=== PATIENT | male | born 1950 | race Caucasian/White ===

== ENCOUNTER → 2016-04-29 | Outpatient (CLI) | payer MEDICAID ==
[~2016-04-29] MED LIST: ALBU8.5H5 INH; ALPR1TAB7 PO; ASPI-1085 PO; LOPE2TAB8 PO; MULT-806 PO; PARO40TA61 PO; POTA-12 PO; QUET300T PO; QUET300T44 PO; [UNRECOGNIZED DRUG - CODE] PO; [UNRECOGNIZED DRUG - CODE] PO
[2016-04-29 17:36] LABS: BASOPHILS # (AUTO) 0.1 T/MM3 (0-0.2); BASOPHILS % (AUTO) 0.7 % (0-2); EOSINOPHILS # (AUTO) 0.4 T/MM3 (0-0.5); HCT - HEMATOCRIT 42.6 % (41-53); HGB - HEMOGLOBIN 14.8 GM/DL (13.5-17.5); IMMATURE GRANULOCYTE # (AUTO) 0.03 T/MM3 (0.00-0.03); IMMATURE GRANULOCYTE % (AUTO) 0.3 % (0.0-0.5); LYMPHOCYTES # (AUTO) 3.4 T/MM3 (1-4.8); LYMPHOCYTES % (AUTO) 38.3 % (23-45); MEAN CORPUSCULAR HGB 34.2 UUG (26-34); MEAN CORPUSCULAR HGB CONC(MCHC 34.7 GM/DL (31-37); MEAN CORPUSCULAR VOLUME 98.4 UM3 (80-100); MEAN PLATELET VOLUME 9.5 UM3 (9.4-12.4); MONOCYTES # (AUTO) 0.6 T/MM3 (0-0.8); MONOCYTES % (AUTO) 6.7 % (0-9.0); NEUTROPHILS #(AUTO)-ABSOLUTE 4.3 T/MM3 (1.8-7.7); RED BLOOD COUNT 4.33 M/MM3 (4.50-5.90); WBC - WHITE BLOOD COUNT 8.8 T/MM3 (4.5-11.0)
[2016-04-29 17:48] LABS: ALBUMIN/GLOBULIN RATIO 1.1 RATIO (1.1-2.2); ALKALINE PHOSPHATASE 98 U/L (38-126); ALT (SGPT) 39 U/L (21-72); ANION GAP 8 MEQ/L (5-15); AST (SGOT) 28 U/L (17-59); BUN/CREATININE RATIO 11 RATIO (6-26); CHLORIDE 99 MEQ/L (98-107); CO2 - CARBON DIOXIDE 33 MEQ/L (22-30); CREATININE 0.9 MG/DL (0.8-1.5); ETHANOL <10 MG/DL (<10); GLOMERULAR FILTRATION RATE 85; GLUCOSE 94 MG/DL (75-110); POTASSIUM 3.5 MEQ/L (3.6-5); SODIUM 140 MEQ/L (134-144); TOTAL PROTEIN 7.6 G/DL (6.3-8.2)
== END ==
LOC: LAB 17:00
PROVIDERS: ATTEND Family Medicine
DX: I10 Essential (primary) hypertension (principal); F10.10 Alcohol abuse, uncomplicated
CPT/HCPCS: 36415; 80053; 80307; 85025

== ENCOUNTER 2016-05-31 22:19 | Observation (INO) | payer MEDICAID ==
[~2016-05-31] VITALS: Ht 182.9 cm; Wt 98.2 kg
--- OUTSIDE RECORDS SUMMARY | 2016-05-31 22:24 | XMS REPORT | Referral Summary ---
Author Author [facility] Organization [facility] Address Unknown Phone Unavailable Care Team Providers Care Casino Beverage Server Name Role Phone MarcusEpi Primary Care Physician [phone] Encounter [facility] [id number] Date(s): 02/23/16 - 02/23/16 [facility] [address] [place] [address] [phone] Discharge Disposition: 01-Home or Self Care Attending Physician: Jake Jung MD Admitting Physician: Jake Jung MD Vital Signs No data available for this section Problem List Condition Effective Dates Status Health Status Informant Chronic back Active patient pain(Confirmed) Dementia(Confirmed) Active patient Depression(Confirmed Active patient ) GERD Active (gastroesophageal reflux disease)(Confirmed) Hypertension(Confirm Active patient ed) Insomnia(Confirmed) Active patient Psychiatric(Confirme Active patient d) Hepatitis Active C(Confirmed) Allergies, Adverse Reactions, Alerts No Known Medication Allergies Medications aspirin 0 Refill(s) Start Date: 07/20/13 Status: Ordered busPIRone 30 mg oral tablet 30 mg 1 tabs, Oral, BID, # 180 tabs, 0 Refill(s) Start Date: 03/21/15 Status: Ordered Cane (DME) DME Item four legged cane: dx gait disturbance, falls; duration of need: indeterminate, See Instructions, # 1 Each, 0 Refill(s), Pharmacy: [facility] #[id number], four legged cane: dx gait disturbance, falls; duration of need: indeterminate, Supply Start Date: 07/20/13 Status: Ordered Combivent Respimat CFC free 20 mcg-100 mcg/inh inhalation aerosol 1 puffs, Inhalation, QID, # 4 g, 0 Refill(s) Start Date: 06/12/14 Status: Ordered ibuprofen 800 mg oral tablet 1 tabs, Oral, TID, as needed for pain, # 30 tabs, 0 Refill(s) Start Date: 06/12/14 Status: Ordered KlonoPIN Oral, TID, 0 Refill(s) Start Date: 07/20/13 Status: Ordered lisinopril Oral, Daily, 0 Refill(s) Start Date: 07/20/13 Status: Ordered Paxil Oral, Daily, 0 Refill(s) Start Date: 07/20/13 Status: Ordered PriLOSEC 20 mg oral delayed release capsule 1 caps, Oral, Daily, # 30 caps, 0 Refill(s) Start Date: 06/12/14 Status: Ordered PROzac 40 mg oral capsule 40 mg 1 caps, Oral, Daily, 0 Refill(s) Start Date: 03/21/15 Status: Ordered SEROquel Oral, 0 Refill(s) Start Date: 07/20/13 Status: Ordered SEROquel Oral, 0 Refill(s) Start Date: 07/20/13 Status: Ordered Soma Oral, QID, 0 Refill(s) Start Date: 07/20/13 Status: Ordered Sudafed 30 mg oral tablet tabs, Oral, q6hr, 0 Refill(s) Start Date: 06/12/14 Status: Ordered Topamax Oral, BID, 0 Refill(s) Start Date: 07/20/13 Status: Ordered Topamax Oral, BID, 0 Refill(s) Start Date: 07/20/13 Status: Ordered Tylenol with Codeine #3 oral tablet 1 tabs, Oral, q4hr, as needed for pain, 0 Refill(s) Start Date: 06/12/14 Status: Ordered Walker (DME) DME Item Walker: dx gait disturbance, falls; duration of need: indeterminate, See Instructions, # 1 Each, 0 Refill(s), Pharmacy: [facility] #[id number], Walker: dx gait disturbance, falls; duration of need: indeterminate, Supply Start Date: 07/20/13 Status: Ordered Results No data available for this section Immunizations Given and Recorded Vaccine Date Status Refusal Reason tetanus/diphth/pertuss (Tdap) adult/adol 07/20/13 Given Procedures Procedure Date Related Diagnosis Body Site Esophagogastroduodenoscopy - SN1 03/21/15 Procedure with Anesthesia2 03/21/15 circumferential biopsies from distal 12/25/12 esophagus via cold biopsy technique cold biopsy forceps x1 12/25/12 Colonoscopy 12/25/12 Esophagogastroduodenoscopy 12/25/12 Polypectomy via snare polypectomy technique x 12/25/12 2 Cholecystectomy Hiatal herniorrhaphy Vasectomy 1auto-populated from documented surgical case 2auto-populated from documented surgical case Social History Social History Type Response Smoking Status Current every day smoker; Type: Cigarettes Assessment and Plan No data available for this section
--- OUTSIDE RECORDS SUMMARY | 2016-05-31 22:24 | XMS REPORT | Referral Summary ---
Author Author [facility] Organization [facility] Address Unknown Phone Unavailable Care Team Providers Care Luster Applicator Name Role Phone Epi Velazquez Primary Care Physician [phone] Encounter [facility] [id number] Date(s): 04/05/16 - 04/05/16 [facility] [address] [place], [place] [address] Discharge Diagnosis: Alcohol intoxication Discharge Disposition: 01-Home or Self Care Attending Physician: Chris Aguero MD Admitting Physician: Chris Aguero MD Vital Signs Most recent to 1 oldest [Reference Range]: Temperature Oral 37.1 degC [35.8-37.3 degC] (04/05/16 4:56 PM) Peripheral Pulse 80 bpm Rate [60-100 bpm] (04/05/16 4:56 PM) Heart Rate Monitored 80 bpm [60-100 bpm] (04/05/16 6:45 PM) Respiratory Rate 20 br/min [14-20 br/min] (04/05/16 6:45 PM) Blood Pressure 123/84 mmHg [90-140/60-90 mmHg] (04/05/16 6:45 PM) Mean Arterial 99 mmHg Pressure, Cuff (04/05/16 6:45 PM) SpO2 95 % (04/05/16 6:45 PM) Problem List Condition Effective Dates Status Health [...] Instructions, # 1 Each, 0 Refill(s), Pharmacy: [facility] #[id number], four legged cane: dx gait disturbance, falls; [...] Instructions, # 1 Each, 0 Refill(s), Pharmacy: [facility] #[id number], Walker: dx gait disturbance, falls; duration of need: indeterminate, Supply Start Date: 07/20/13 Status: Ordered Results Hematology Most recent to 1 oldest [Reference Range]: WBC [4.8-10.8 8.4 10*3/uL 10*3/uL] (04/05/16 5:27 PM) RBC [4.60-6.20] 4.35 *LOW* (04/05/16 5:27 PM) Hgb [14.0-18.0 14.4 gm/dL gm/dL] (04/05/16 5:27 PM) Hct [42.0-52.0 %] 42.9 % (04/05/16 5:27 PM) MCV [82.0-99.0 fL] 98.6 fL (04/05/16 5:27 PM) MCH [27.0-32.0 pg] 33.1 pg *HI* (04/05/16 5:27 PM) MCHC [32.0-36.0 33.6 gm/dL gm/dL] (04/05/16 5:27 PM) RDW [11.5-14.5 %] 12.8 % (04/05/16 5:27 PM) Platelet [150-400 236 10*3/uL 10*3/uL] (04/05/16 5:27 PM) MPV [9.4-12.3 fL] 10.0 fL (04/05/16 5:27 PM) Immature 0.5 % Granulocytes (04/05/16 5:27 PM) [0.0-1.0 %] Neutrophils [51-75 45 % %] *LOW* (04/05/16 5:27 PM) Lymphocytes [20-46 35 % %] (04/05/16 5:27 PM) Monocytes [4-11 %] 15 % *HI* (04/05/16 5:27 PM) Eosinophils [0-4 %] 5 % *HI* (04/05/16 5:27 PM) Basophils [0-2 %] 1 % (04/05/16 5:27 PM) Neutro Absolute 3.81 [1.90-7.00] (04/05/16 5:27 PM) Lymph Absolute 2.91 [0.80-3.30] (04/05/16 5:27 PM) [place] Absolute 1.22 [0.30-1.00] *HI* (04/05/16:27 PM) Eos Absolute 0.39 [0.00-0.50] (04/05/16 5:27 PM) Baso Absolute 0.06 [0.00-0.20] (04/05/16 5:27 PM) Coagulation Most recent to 1 oldest [Reference Range]: INR [0.9-1.2] 1.1 (04/05/16 5:27 PM) Chemistry Most recent to 1 oldest [Reference Range]: Sodium Lvl [136-144 136 mEq/L mEq/L] (04/05/16:27 PM) Potassium Lvl 3.5 mEq/L [3.6-5.1 mEq/L] *LOW* (04/05/16:27 PM) Chloride [99-109 97 mEq/L mEq/L] *LOW* (04/05/16:27 PM) CO2 [22-32 mEq/L] 26 mEq/L (04/05/16 5:27 PM) AGAP [3-20] 13 (04/05/16 5:27 PM) BUN [4-20 mg/dL] 9 mg/dL (04/05/16:27 PM) Glucose Lvl [70-100 135 mg/dL mg/dL] *HI* (04/05/16:27 PM) Creatinine Lvl 0.87 mg/dL [0.64-1.27 mg/dL] (04/05/16:27 PM) eGFR [>60] >60 1 (04/05/16 5:27 PM) Calcium Lvl 9.0 mg/dL [8.6-10.0 mg/dL] (04/05/16 5:27 PM) Albumin Lvl [3.5-4.8 3.7 gm/dL gm/dL] (04/05/16 5:27 PM) Total Protein 7.2 gm/dL [6.1-7.9 gm/dL] (04/05/16 5:27 PM) Globulin [1.9-4.3 3.5 gm/dL gm/dL] (04/05/16 5:27 PM) ALT [17-63 U/L] 23 U/L (04/05/16 5:27 PM) AST [15-41 U/L] 29 U/L (04/05/16 5:27 PM) Alk Phos [26-104 64 U/L U/L] (04/05/16 5:27 PM) Bili Total [0.2-1.2 0.6 mg/dL 2 mg/dL] (04/05/16 5:27 PM) Lipase Lvl [8-48 25 U/L U/L] (04/05/16 5:27 PM) 1Result Comment: Multiply eGFR results by 1.21 for race. 2Result Comment: Naproxen, specifically the metabolite O-desmethylnaproxen, may cause spurious elevation in Total Bilirubin levels. Toxicology Most recent to 1 oldest [Reference Range]: Ethanol Lvl 284 mg/dL (04/05/16 5:27 PM) Immunizations Given and Recorded Vaccine Date Status [...]
--- OUTSIDE RECORDS SUMMARY | 2016-05-31 22:24 | XMS REPORT | Continuity of Care Document ---
Author Author [facility] Organization [facility] Address Unknown Phone Unavailable Allergies Active Description Code Type Severity Reaction Onset Reported/Identified Relationship to Patient Clinical Status Yes No Known Allergies Drug Allergy Unknown N/A 04/17/2013 Yes No Known Allergies Drug Allergy N/A N/A 05/21/2013 Yes No Known Drug Allergies Drug Allergy N/A N/A 05/21/2013 Yes No Known Food Allergies Food Allergy N/A N/A 05/21/2013 Yes No Known Medication Allergies NKMA N/A N/A 07/20/2013 Yes No Known Allergies No Known Allergies Drug Allergy Unknown N/A 03/17/2016 Medications Medication Packaging Start Date Stop Date Route Dosage Sig QUEtiapine(SEROquel) 07/20/2013 Oral Oral topiramate(Topamax) 07/20/2013 Oral Oral, BID QUEtiapine(SEROquel) 07/20/2013 Oral Oral topiramate(Topamax) 07/20/2013 Oral Oral, BID aspirin(aspirin) 07/20/2013 PARoxetine(Paxil) 07/20/2013 Oral Oral, Daily lisinopril(lisinopril) 07/20/2013 Oral Oral, Daily carisoprodol(Soma) 07/20/2013 Oral Oral, QID clonazePAM(KlonoPIN) 07/20/2013 Oral Oral, TID busPIRone(busPIRone 30 mg oral tablet) 1 tabs 03/21/2015 Oral 30 mg 30 mg=1 tabs, Oral, BID, 180 tabs, 0 Refill(s) FLUoxetine(PROzac 40 mg oral capsule) 1 caps 03/21/2015 Oral 40 mg 40 mg=1 caps, Oral, Daily, 0 Refill(s) Lactated Ringers Injection(Lactated Ringers Injection 1, 000 mL) 1,000 mL 201503/21/2015 IV 10 mL/hr, IV ipratropium-albuterol(DuoNeb 0.5 mg-2.5 mg/3 mL inhalation solution) 3 mL 201604/09/2016 NEB 3 mL, NEB, Once Problems Date Dx Coded Attending Type Code Diagnosis Diagnosed By 12/20/2012 Edilma Valle MD, Tree Gilliam Final V70.4 EXAM-MEDICOLEGAL REASONS 01/16/2013 Bear Lackey MD Final 305.1 TOBACCO USE DISORDER 01/16/2013 Bear Lackey MD Final 530.81 ESOPHAGEAL REFLUX 01/16/2013 Bear Lackey MD Final 530.85 HAYS S ESOPHAGUS 01/16/2013 Bear Lackey MD Final 787.01 NAUSEA W VOMITING 05/14/2013 Francisco Segovia MD Final 305.1 TOBACCO USE DISORDER 05/14/2013 Francisco Segovia MD Final 401.1 BENIGN HYPERTENSION 05/14/2013 Francisco Segovia MD Final 780.2 SYNCOPE COLLAPSE 05/14/2013 Francisco Segovia MD Final 780.4 DIZZINESS GIDDINESS 05/14/2013 Francisco Segovia MD Final 786.05 SHORTNESS OF BREATH 05/14/2013 Francisco Segovia MD Admitting 780.2 SYNCOPE COLLAPSE 05/18/2013 Francisco Segovia MD Final 305.1 TOBACCO USE DISORDER 05/18/2013 Francisco Segovia MD Final 338.29 CHRONIC PAIN NEC 05/18/2013 Francisco Segovia MD Final 401.1 BENIGN HYPERTENSION 05/18/2013 Francisco Segovia MD Final 530.81 ESOPHAGEAL REFLUX 05/18/2013 Francisco Segovia MD Final 724.5 BACKACHE NOS 05/18/2013 Francisco Segovia MD Final 780.2 SYNCOPE COLLAPSE 05/18/2013 Francisco Segovia MD Admitting 780.2 SYNCOPE COLLAPSE 05/21/2013 Francisco Segovia MD Final 414.8 CHR ISCHEMIC HRT DIS NEC 05/21/2013 Francisco Segovia MD Final 780.2 SYNCOPE COLLAPSE 05/21/2013 Francisco Segovia MD Admitting 786.05 SHORTNESS OF BREATH 05/21/2013 Francisco Segovia MD Final 794.31 NONSPECIFIC ABN EKG/ECG 05/21/2013 Francisco Segovia MD Admitting 780.2 SYNCOPE COLLAPSE 03/31/2015 Jake Jung MD Final B18.2 Chronic viral hepatitis C 03/31/2015 Jake Jung MD Final F17.210 Nicotine dependence, cigarettes, uncomplicated 03/31/2015 Jake Jung MD Final I10 Essential (primary) hypertension 03/31/2015 Jake Jung MD Final I85.00 Esophageal varices without bleeding 03/31/2015 Jake Jung MD Final K22.70 Hays''s esophagus without dysplasia 03/31/2015 Jake Jung MD Final K74.60 Unspecified cirrhosis of liver 03/31/2015 Jake Jung MD Reason Z13.89 Encounter for screening for other disorder 02/25/2016 Jung Michael Reason R18.8 Other ascites 04/07/2016 Aguero Curt Final F10.229 Alcohol dependence with intoxication, unspecified 04/07/2016 Aguero Curt Final F17.210 Nicotine dependence, cigarettes, uncomplicated 04/07/2016 Aguero Curt Final K70.30 Alcoholic cirrhosis of liver without ascites 04/07/2016 Aguero Curt Reason R79.89 Other specified abnormal findings of blood chemistry 04/07/2016 Aguero Curt Final Z79.899 Other usp (current) drug therapy 04/12/2016 Jung Michael Final B19.20 Unspecified viral hepatitis C without hepatic coma 04/12/2016 Jung Michael Final F10.10 Alcohol abuse, uncomplicated 04/12/2016 Jung Michael Final F17.210 Nicotine dependence, cigarettes, uncomplicated 04/12/2016 Jung Michael Reason I85.10 Secondary esophageal varices without bleeding 04/12/2016 Jung Michael Final J44.9 Chronic obstructive pulmonary disease, unspecified 04/12/2016 Jung Michael Final K22.70 Hays''s esophagus without dysplasia Procedures Code Description [place] [address] Esophagogastroduodenoscopy, flexible, transoral; diagnostic, including mayi 03/21/2015 59417 Esophagogastroduodenoscopy, flexible, transoral; diagnostic, including mayi 04/09/2016 Results Test Result Range URINALYSIS, ROUTINE - 04/17/13 15:08 UA LEUKOCYTE ESTERASE DIPSTICK NEGATIVE NEGATIVE UA NITRITE DIPSTICK NEGATIVE NEGATIVE UA PROTEIN DIPSTICK NEGATIVE NEGATIVE UA GLUCOSE DIPSTICK NEGATIVE NEGATIVE UA KETONE DIPSTICK NEGATIVE NEGATIVE UA UROBILINOGEN DIPSTICK NORMAL NORMAL UA BILIRUBIN DIPSTICK NEGATIVE NEGATIVE UA BLOOD DIPSTICK NEGATIVE NEGATIVE UA SPECIFIC GRAVITY 1.005 1.015-1.025 UR PH 7.0 5.0-7.0 UR DRUGS OF ABUSE SCREEN - 04/17/13 15:08 UR AMPHETAMINES SCREEN NEG (<1000 ng/mL) NEGATIVE UR BARBITURATE SCREEN NEG (< 200 ng/mL) NEGATIVE DRUGS OF ABUSE SCREEN COMMENT UR OPIATES SCREEN NEG (< 300 ng/mL) NEGATIVE UR PHENCYCLIDINE (PCP) SCREEN NEG (< 25 ng/mL) NEGATIVE UR CANNABINOIDS (THC) SCREEN NEG (< 50 ng/mL) NEGATIVE UR COCAINE METABOLITE SCREEN NEG (< 300 ng/mL) NEGATIVE UR METHADONE SCREEN NEG (< 300 ng/mL) NEGATIVE UR BENZODIAZEPINE SCREEN NEG (< 200 ng/mL) NEGATIVE UA MICROSCOPIC - 04/17/13 15:08 UA RBC 0 rbc/hpf 0 - 3 UA VOLUME FOR EXAM 12.0 mL (12mL STD) UA WBC 0 wbc/hpf 0 - 5 CREATININE BEDSIDE - 03/17/16 14:41 METHOD Bedside CREATININE 0.9 mg/dL 0.7-1.3 Encounters ACCT No. Visit Date/Time Discharge Status Pt. Type Provider Facility Loc./Unit Complaint [id number] 04/17/2013 13:56:00 2013 [facility]
--- OUTSIDE RECORDS SUMMARY | 2016-05-31 22:25 | XMS REPORT | Continuity of Care Document ---
Author Author [facility] Organization [facility] Address Unknown Phone Unavailable Care Team Providers Care Real Estate Associate Attorney Name Role Phone TIFFANY MAYNARD MD Primary Care Physician [phone] Insurance Providers Guarantor Jeremi Braswell Address [address] [place] [address] Email DENIED 04-15-16 Payer [facility] Policy Number [id number] Subscriber's Name Jeremi Braswell Relationship 18 Self Effective Date 16 Expiration Date 16 Advance Directives Directive Response Recorded Date/Time Advanced Directives Type None 06/11/13 9:15am Ordered Resuscitation Status Full Code 06/10/13 2:10pm Chief Complaint and Reason for Visit Chief Complaint Fall Reason for Visit Alcohol intoxication Loss of consciousness Laceration of forehead, complicated Problems Past Problems Medical Problem Onset Date Alcohol intoxication Unknown Laceration of forehead, complicated Unknown Loss of consciousness Unknown Medications Current Home Medications Medication Dose Units Route Directions Days Qty Instructions Start Date Albuterol Sulfate (Proair Hfa) 8.5 Gm Aerosol 1 Puff Inhalation As Needed 12/22/12 Alprazolam 1 Mg Tablet 2 Mg Oral Three Times A Day 04/15/16 Aspirin (Aspirin Ec) 81 Mg Tablet. 81 Mg Oral Daily 04/15/16 Carisoprodol (Soma) 350 Mg Tablet 350 Mg Oral Four Times Daily Lisinopril/Hydrochlorothiazide (Lisinopril-Hctz 10/12.5 Tab) 1 Tab Tablet 1 Tab Oral Daily 01/02/08 Loperamide Hcl (Anti-Diarrheal) 2 Mg Tablet 4 Mg Oral As Needed 04/15/16 Multivitamins (Multivitamin) 1 Tab Tablet 1 Tab Oral Daily Paroxetine Hcl 40 Mg Tablet 40 Mg Oral Daily 12/22/12 Potassium Chloride 10 Meq Tab.er.prt 10 Meq Oral Twice A Day 10/24 Quetiapine Fumarate (Seroquel) 300 Mg Tablet 300 Mg Oral Bedtime 03/09/13 Quetiapine Fumarate 300 Mg Tablet 300 Mg Oral Bedtime 04/15/16 Past Home Medications Medication Directions Ordered Status Omeprazole (Prilosec) 20 Mg Capsule.dr, 20 Mg Oral Daily 01/02/08 Discontinued Social History Social History Problem Response Recorded Date/Time Onset Date Status Chewing Tobacco Status No 06/11/2013 9:20am Not Applicable Not Applicable Hx Substance Use N HX OF 04/15/2016 10:53am Not Applicable Not Applicable Hx Alcohol Use Y CURRENT WHISKEY 04/15/2016 10:53am Not Applicable Not Applicable Has the pt used tobacco in the last 12 months Yes 06/11/2013 9:20am Not Applicable Not Applicable Query Response Start Date Stop Date Smoking Status Current every day smoker Hospital Discharge Instructions No hospital discharge instructions. Plan of Care Discharge Date 04/15/16 4:13pm Disposition 01 DISCHARGED HOME, SELF-CARE Condition at Discharge Improved Instructions/Education Provided Laceration (ED) Fall Prevention (ED) Prescriptions See Medication Section Referrals TIFFANY MAYNARD MD Address: [address] [place] [address] [place] [address] Additional Instructions/Education Keep wound clean and dry. Return to emergency department if you have any episodes of passing out. Follow-up with Dr. Maynard. Functional Status No functional status results. Allergies, Adverse Reactions, Alerts Allergen Type Severity Reaction Status Last Updated No Known Drug Allergies Allergy Unknown Active 06/11/13 Immunizations Query Response on File Recorded Date/Time Hx Influenza Vaccination No 06/11/13 9:20am Hx Pneumococcal Vaccination No 06/11/13 9:20am Hx Influenza Vaccination No 06/11/13 9:20am Tdap Vaccine Hx UNKNOWN 04/15/16 10:56am Vital Signs Acute Vital Signs Vital Response Date/Time Temperature (Fahrenheit) 97.9 deg F (96.8 - 99.1) 04/15/2016 12:58pm Temperature (Calculated Celsius) 36.59546 degrees C (36.0 - 37.3) 04/15/2016 12:58pm Pulse Rate (adult) 83 bpm (60 - 100) 04/15/2016 2:19pm Respiratory Rate 16 breaths/min (10 - 20) 04/15/2016 2:19pm O2 Sat by Pulse Oximetry 98 % (90 - 100) 04/15/2016 2:19pm Blood Pressure 147/97 mm Hg 04/15/2016 2:19pm Height (Feet) 6 feet 04/15/2016 10:10am Height (Inches) 0 inches 04/15/2016 10:10am Weight (Kilograms) 99.000 kg 04/15/2016 10:10am Body Mass Index (BMI) 29.0 04/15/2016 10:10am Results Laboratory Results Test Name Result Units Flags Reference Collection Date/Time Result Date/ Time Comments White Blood Count 8.8 T/MM3 4.5-11.0 04/15/2016 11:49am 04/15/2016 11: 59am Red Blood Count 4.79 M/MM3 4.50-5.90 04/15/2016 11:49am 04/15/2016 11: 59am Hemoglobin 16.2 GM/DL 13.5-17.5 04/15/2016 11:49am 04/15/2016 11:59am Hematocrit 46.8 % 41-53 04/15/2016 11:49am 04/15/2016 11:59am Mean Corpuscular Volume 97.7 UM3 80-100 04/15/2016 11:49am 04/15/2016 11:59am Mean Corpuscular Hemoglobin 33.8 UUG 26-34 04/15/2016 11:49am 2016 11:59am Mean Corpuscular Hemoglobin Concent 34.6 GM/DL 31-37 04/15/2016 11:49am 04/15/2016 11:59am RDW Standard Deviation 47.7 FL 36.9-50.2 04/15/2016 11:49am 04/15/2016 11:59am Platelet Count 221 T/MM3 130-400 04/15/2016 11:49am 04/15/2016 11:59am Mean Platelet Volume 9.6 UM3 9.4-12.4 04/15/2016 11:49am 04/15/2016 11: 59am Neutrophils (%) (Auto) 44.0 % 33-66 04/15/2016 11:49am 04/15/2016 11: 59am Lymphocytes (%) (Auto) 44.6 % 23-45 04/15/2016 11:49am 04/15/2016 11: 59am Monocytes (%) (Auto) 7.9 % 0-9.0 04/15/2016 11:49am 04/15/2016 11:59am Eosinophils (%) (Auto) 2.6 % 0-4 04/15/2016 11:49am 04/15/2016 11:59am Basophils (%) (Auto) 0.6 % 0-2 04/15/2016 11:49am 04/15/2016 11:59am Immature Granulocyte % (Auto) 0.3 % 0.0-0.5 04/15/2016 11:49am 2016 11:59am Absolute Neutrophils (auto) 3.9 T/MM3 1.8-7.7 04/15/2016 11:49am 2016 11:59am Absolute Lymphocytes (auto) 3.9 T/MM3 1-4.8 04/15/2016 11:49am 2016 11:59am Absolute Monocytes (auto) 0.7 T/MM3 0-0.8 04/15/2016 11:49am 2016 11:59am Absolute Eosinophils (auto) 0.2 T/MM3 0-0.5 04/15/2016 11:49am 2016 11:59am Absolute Basophils (auto) 0.1 T/MM3 0-0.2 04/15/2016 11:49am 2016 11:59am Absolute Immature Granulocyte (auto 0.03 T/MM3 0.00-0.03 04/15/2016 11: 49am 04/15/2016 11:59am Icterus Index < 2 0-7 04/15/2016 11:49am 04/15/2016 12:23pm Chemistry Specimen Hemolysis < 15 0-25 04/15/2016 11:49am 04/15/2016 12:23pm 0-25: Specimen Exhibited No Hemolysis. Turbidity < 20 0-20 04/15/2016 11:49am 04/15/2016 12:23pm Sodium Level 152 MEQ/L H 134-144 04/15/2016 11:49am 04/15/2016 12:10pm Potassium Level 3.7 MEQ/L 3.6-5 04/15/2016 11:49am 04/15/2016 12:10pm Chloride Level 110 MEQ/L H 98-107 04/15/2016 11:49am 04/15/2016 12:10pm Carbon Dioxide Level 22 MEQ/L 22-30 04/15/2016 11:49am 04/15/2016 12: 10pm Anion Gap 20 MEQ/L H 5-15 04/15/2016 11:49am 04/15/2016 12:10pm Blood Urea Nitrogen 6.0 MG/DL L 9-20 04/15/2016 11:49am 04/15/2016 12: 10pm Creatinine 0.9 MG/DL 0.8-1.5 04/15/2016 11:49am 04/15/2016 12:10pm BUN/Creatinine Ratio 7 RATIO 6-26 04/15/2016 11:49am 04/15/2016 12: 10pm Glomerular Filtration Rate Calc 85 04/15/2016 11:49am 04/15/2016 12 :10pm Glucose Level 111 MG/DL H 75-110 04/15/2016 11:49am 04/15/2016 12:10pm Calculated Osmolality 291 MOSM/KG H 261-280 04/15/2016 11:49am 2016 12:10pm Calcium Level 8.8 MG/DL 8.4-10.2 04/15/2016 11:49am 04/15/2016 12:10pm Total Bilirubin 0.70 MG/DL 0.20-1.30 04/15/2016 11:49am 04/15/2016 12: 10pm Alkaline Phosphatase 109 U/L 38-126 04/15/2016 11:49am 04/15/2016 12: 10pm Total Protein 7.6 G/DL 6.3-8.2 04/15/2016 11:49am 04/15/2016 12:10pm Albumin 4.1 G/DL 3.5-5.0 04/15/2016 11:49am 04/15/2016 12:10pm Globulin 3.5 G/DL 2.4-3.6 04/15/2016 11:49am 04/15/2016 12:10pm Albumin/Globulin Ratio 1.2 RATIO 1.1-2.2 04/15/2016 11:49am 04/15/2016 12:10pm Aspartate Amino Transf (AST/SGOT) 66 U/L H 17-59 04/15/2016 11:49am 10/2016 12:10pm Alanine Aminotransferase (ALT/SGPT) 59 U/L 21-72 04/15/2016 11:49am 10/2016 12:10pm Troponin I < 0.012 ng/ml 0-0.12 04/15/2016 11:49am 04/15/2016 12:23pm Troponin values with a difference of 55% increase from orginal troponin value represent a true biological DELTA value. (%increase Calc=Orginal Troponin value, divided by subsequent Troponin value, multiplied by 100) Lipase 79 U/L 23-300 04/15/2016 11:49am 04/15/2016 12:10pm Alcohol, Quantitative 272 MG/DL <10 04/15/2016 11:49am 04/15/2016 12: 09pm Prolactin 16.1 NG/ML 04/15/2016 11:49am 04/15/2016 12:26pm Normal Female (Non-): 3.0-18.6 ng/ml; Males: 3.7-17.9 ng/ml Name: JEREMI BRASWELL Unit #: [id number] : 1950 Sex: M Admit Date: Loc / Svc: ED Discharge Date: DIAGNOSTIC IMAGING REPORT Report #: [id number] [facility] [place] Indication: ITS.REASON: fall, loss of consciousness, alcohol involvement PROCEDURE: CT HEAD W/O CONTRAST: Encounter: Initial Comparison: None Technique: Axial CT images through the head were performed without contrast. Iterative Reconstruction dose reducing technique was utilized. FINDINGS: The ventricles are of normal size, shape, and configuration for the patient's age. There is no evidence of acute intracranial hemorrhage, midline displacement, or mass effect. There are scattered areas of low attenuation in the white matter which most likely represent changes of chronic microvascular ischemia. The CT attenuation of the brain parenchyma is otherwise normal within the cerebellum, brain stem, and cerebral hemispheres. The tympanic cavities and mastoid air cells are free of appreciable disease. Age-indeterminate nasal arch fractures. IMPRESSION: No CT evidence of acute traumatic intracranial injury. Age-indeterminate nasal arch fractures. . Procedures No known history of procedures. Encounters Encounter Location Arrival/Admit Date Discharge/Depart Date Attending Provider Departed Emergency Room [facility] 04/15/16 10:08am 04/15/16 4: 13pm BOBBY PORTER MD Recent Diagnosis
--- NOTE | 2016-05-31 22:41 | ERPDOC ---
Departure Disposition Decision Date: May 31, 2016 Disposition Decision Time: 23:38 Disposition: 02 TO OBS [facility] [place] Impression Impression Impression: Primary Impression: Drug overdose, intentional Encounter type: initial encounter Qualified Codes: T50.902A - Poisoning by unspecified drugs, medicaments and biological substances, intentional self-harm , initial encounter Severity: Moderate Condition: Stable Seen By: Physician only Referrals: TIFFANY MAYNARD MD (PCP) Problems/Meds/Labs Reviewed?: Yes Medications reviewed and manag: Yes Follow up care ordered?: Yes Mental Status: Confused Critical Care Note Total Time (mins): 45 Critical Care Spent: [id number] care of pt, Reviewing test results, Discuss the case w/staff, Documenting the MR, Discussion w/ family/DPOA During this visit the pt was: At Risk of Deterioration HPI - Psychosocial General Stated Complaint: OD Time Seen by MD: 22:28 Source: patient, family, EMS Exam Limitations: clinical condition HPI - Psychosocial Initial Comments EMS was called to the patient's home by the patient's mother who had discovered that the patient had taken between 64 and 96 Soma tablets over the last 24 hours in an effort to get and stay high. Patient has chronic back pain, gets prescriptions for soma from his primary physician, and admits that he abuses them. Patient's medications are all in a locked box and his mother, who does not live with him, he to giving him his medications. Sometime early this morning , the patient broke into the locked box and began taking the Soma multiple tablets at a time throughout the day today. Patient finally ran out of the medications, and may have taken as many as 96, S2 is 64 tablets total. Essentially symptoms at this time or somnolence and confusion. Occurred At: home Onset: Gradual Duration: 12-24 hrs Severity: moderate Associated Symptoms: ingestion Allergies: Coded Allergies: No Known Drug Allergies (Verified Allergy, Unknown, 05/31/16) Past History Patient Medical History Problem List Updates: Soma abuse Past Medical History Metabolic: hypertension Musculoskeletal: back pain Psychological: alcohol abuse, bipolar Surgical History Denies Surgeries Family History Family PMH: FOUND: diabetes, hypertension Vaccines Hx Influenza Vaccination: No Hx Pneumococcal Vaccination: No Social History Smoking Status: Never smoker Does patient use chewing tobac: No Second Hand Exposure: No Substance Use Type: prescription drug (Soma) Alcohol Intake: daily Marital Status: Single Record Review Pertinent history updated: Yes Review of Systems Constitutional Constitutional: DENIES: appetite decrease, appetite increase, chills, dizziness , fever, weakness ENMT Ears: DENIES: pain Hearing: DENIES: hearing loss, tinnitus Balance: DENIES: vertigo Mouth/Throat: DENIES: change in swallowing, change in voice, hoarsness, painful swallowing, sore throat Cardiovascular Cardiac: DENIES: chest pain, dyspnea on exertion Rhythm/Rate: DENIES: irregular beat, palpitations, tachycardia Vascular: DENIES: pedal edema Pulmonary Respiratory: DENIES: cough, dyspnea, pleuritic chest pain GI Upper Abdomen: DENIES: dysphagia, heartburn/indigestion, nausea, pain, vomiting Lower Abdomen: DENIES: blood in stool, constipation, diarrhea, pain General: DENIES: burning, dysuria, frequency, pain, urgency Musculoskeletal General: DENIES: cramps, joint pain, joint swelling, pain, weakness Integumentary Skin: DENIES: rash, sores Neurological General: DENIES: headache, numbness, tingling, vertigo, weakness Psychiatric Psychiatric: DENIES: anxiety, depression, nervousness Physical Exam General General Nourishment: well nourished, well developed, appears stated age, no acute distress General Body Habitus: well groomed Vitals and Pain First Documented Vital Signs Date Time Temp Pulse Resp B/P Pulse Ox O2 Delivery O2 Flow Rate FiO2 05/31/16 23:05 97.9 72 16 146/101 96 Room Air Weight: Kilograms: Height (feet): 6 Height (inches): 0 Triage Pain Scale: RN VS reviewed by Provider: Yes Normal Exams: Head: Normocephalic w/o trauma Eyes: Pupils are PERRLA w/ EOMI, No scleral icterus, irritation, or foreign bodies noted ENMT: No facial trauma, nasal exudates, pharyngeal erythema, or exudates are noted Neck: Full range of motion, without adenopathy, JVD, bruits or thyromegaly Chest/Resp: Clear all barreto, with good airflow, and symmetry bilaterally CV: Regular rate and rhythm, without murmur or gallop, Pulses 2+ all extremities, capillary refill, <2 seconds all ext., no pedal edema noted Abdomen: Bowel sounds positive, soft, non-tender, non-distended, no hepatosplenomegaly, masses or bruits noted Lymphatic: No lymphadenopathy, or lymphedema noted Musculoskeletal: No tenderness, or deformity noted, good range of motion, all extremities Integumentary: No rashes, hives, or bruising noted, hair and nails, without abnormality Neurologic: Patient is alert, and oriented, cranial nerves, motor/sensory/ cerebellar, exams w/o gross deficits, to observation Psychiatric (brief) Psychiatric Brief: FOUND: alert, attentive, oriented, NOT FOUND: normal affect (flat affect) Comments Patient is moderately confused, moderately sleepy, but is able to interact both verbally and physically, as well as follow commands. Progress Results/Orders Orders Procedure Category Date Status Time Iv Lock (Ed Only) EDM 05/31/16 Transmitted 22:28 Cmp - Comprehensive LAB 05/31/16 Complete Metabolic 22:28 Cbc W/Auto LAB 05/31/16 Complete Diff-Reflex Manual 22:28 Ethanol LAB 05/31/16 Complete 22:28 Drug Screen LAB 05/31/16 Logged Urine-Test At [facility] [place] 22:28 Acetaminophen LAB 05/31/16 Complete 22:28 Salicylate LAB 05/31/16 Complete 22:28 Ua, Dip Wreflex LAB 05/31/16 Logged [employer] 22:28 Bgm (Ed) EDM 05/31/16 Transmitted 22:28 EKG EKG 05/31/16 Logged 22:28 Iv Lock (Ed Only) EDM 05/31/16 Transmitted 22:28 Lab Results Laboratory Tests Test 05/31/16 22:43 White Blood Count 7.3T/MM3 Red Blood Count 4.27M/MM3 Hemoglobin 14.6GM/DL Hematocrit 41.1% Mean Corpuscular Volume 96.3UM3 Mean Corpuscular Hemoglobin 34.2UUG Mean Corpuscular Hemoglobin Concent 35.5GM/DL RDW Standard Deviation 41.5FL Platelet Count 181T/MM3 Mean Platelet Volume 9.5UM3 Immature Granulocyte % (Auto) 0.1% Neutrophils (%) (Auto) 47.8% Lymphocytes (%) (Auto) 34.6% Monocytes (%) (Auto) 10.3% Eosinophils (%) (Auto) 6.7% Basophils (%) (Auto) 0.5% Absolute Immature Granulocyte (auto 0.01T/MM3 Absolute Neutrophils (auto) 3.5T/MM3 Absolute Lymphocytes (auto) 2.5T/MM3 Absolute Monocytes (auto) 0.8T/MM3 Absolute Eosinophils (auto) 0.5T/MM3 Absolute Basophils (auto) 0.0T/MM3 Turbidity < 20 Sodium Level 138MEQ/L Potassium Level 3.1MEQ/L Chloride Level 101MEQ/L Carbon Dioxide Level 27MEQ/L Anion Gap 10MEQ/L Blood Urea Nitrogen 9.0MG/DL Creatinine 0.8MG/DL Glomerular Filtration Rate Calc 97 BUN/Creatinine Ratio 11RATIO Glucose Level 103MG/DL Calculated Osmolality 265MOSM/KG Calcium Level 9.1MG/DL Total Bilirubin 0.60MG/DL Icterus Index < 2 Aspartate Amino Transf (AST/SGOT) 24U/L Alanine Aminotransferase (ALT/SGPT) 35U/L Alkaline Phosphatase 71U/L Total Protein 7.0G/DL Albumin 3.8G/DL Globulin 3.2G/DL Albumin/Globulin Ratio 1.2RATIO Chemistry Specimen Hemolysis < 15 Salicylates Level < 1.0MG/DL Acetaminophen Level < 10UG/ML Alcohol, Quantitative <10MG/DL Progress Progress CBC - n CMP - n EKG - normal sinus rhythm without ischemia, ectopy, or infarction UDS - pending EtOH - normal/negative Acetaminophen/aspirin/salicylates - all negative Case discussed with Dr. Sonido Brown, we'll admit to CCU observation on telemetry YOSI ANAND MD May 31, 2016 22:40
--- NOTE | 2016-05-31 22:50 | NUR ---
BR PT STANDS WITH AN UNSTEADY GAIT AND ASSISTANCE AT BEDSIDE. IS UNABLE TO URINATE IN URINAL.
[2016-05-31 22:54] LABS: BASOPHILS % (AUTO) 0.5 % (0-2); EOSINOPHILS # (AUTO) 0.5 T/MM3 (0-0.5); EOSINOPHILS % (AUTO) 6.7 % (0-4); HCT - HEMATOCRIT 41.1 % (41-53); HGB - HEMOGLOBIN 14.6 GM/DL (13.5-17.5); IMMATURE GRANULOCYTE # (AUTO) 0.01 T/MM3 (0.00-0.03); IMMATURE GRANULOCYTE % (AUTO) 0.1 % (0.0-0.5); LYMPHOCYTES # (AUTO) 2.5 T/MM3 (1-4.8); LYMPHOCYTES % (AUTO) 34.6 % (23-45); MEAN CORPUSCULAR HGB 34.2 UUG (26-34); MEAN CORPUSCULAR HGB CONC(MCHC 35.5 GM/DL (31-37); MEAN CORPUSCULAR VOLUME 96.3 UM3 (80-100); MEAN PLATELET VOLUME 9.5 UM3 (9.4-12.4); MONOCYTES # (AUTO) 0.8 T/MM3 (0-0.8); MONOCYTES % (AUTO) 10.3 % (0-9.0); NEUTROPHILS #(AUTO)-ABSOLUTE 3.5 T/MM3 (1.8-7.7); NEUTROPHILS % (AUTO) 47.8 % (33-66); RED BLOOD COUNT 4.27 M/MM3 (4.50-5.90); WBC - WHITE BLOOD COUNT 7.3 T/MM3 (4.5-11.0)
--- OUTSIDE RECORDS SUMMARY | 2016-05-31 23:01 | XMS REPORT | Continuity of Care Document ---
Author Author [facility] Organization [facility] Address Unknown Phone Unavailable Allergies Active [...] chemistry 04/07/2016 Aguero Curt Final Z79.899 Other detention (current) drug therapy 04/12/2016 Jung Michael Final [...] Procedures Code [place] [id number] Esophagogastroduodenoscopy, flexible, transoral; diagnostic, including mayi 03/21/2015 38640 Esophagogastroduodenoscopy, flexible, transoral; diagnostic, including mayi 04/09/2016 [...] Status Pt. Type Provider Facility Loc./Unit Complaint [id number] 04/17/2013 13:56:00 2013 [facility]
[2016-05-31 23:03] LABS: POTASSIUM 3.1 MEQ/L (3.6-5)
[2016-05-31 23:04] LABS: ACETAMINOPHEN < 10 UG/ML (10-30); ALBUMIN 3.8 G/DL (3.5-5.0); ALBUMIN/GLOBULIN RATIO 1.2 RATIO (1.1-2.2); ALKALINE PHOSPHATASE 71 U/L (38-126); ALT (SGPT) 35 U/L (21-72); ANION GAP 10 MEQ/L (5-15); AST (SGOT) 24 U/L (17-59); BUN/CREATININE RATIO 11 RATIO (6-26); CALCIUM 9.1 MG/DL (8.4-10.2); CHLORIDE 101 MEQ/L (98-107); CO2 - CARBON DIOXIDE 27 MEQ/L (22-30); CREATININE 0.8 MG/DL (0.8-1.5); ETHANOL <10 MG/DL (<10); GLOMERULAR FILTRATION RATE 97; GLUCOSE 103 MG/DL (75-110); SALICYLATE < 1.0 MG/DL (2-20); SODIUM 138 MEQ/L (134-144)
--- NOTE | 2016-05-31 23:30 | NUR ---
OUTPUT/UDS PT ATTEMPTS TO STAND AT BEDSIDE, IS STILL SLIGHTLY UNSTEADY BUT GAIT HAS IMPROVED. PT IS UNABLE TO VOID USING URINAL, BLADDER SCANNER IS USED PT IS FOUND TO HAVE 147 ML, STRAIGHT CATH IS PERFORMED AND URINE SAMPLE IS OBTAINED.
[2016-05-31] MEDS ORDERED: ONDANSETRON 4mg/2ml INJECTION IV PRN (23:45)
[2016-05-31] MEDS ORDERED: FLEET PHOSPHO-SODA 133 ML ENEMA RECTALLY PRN (23:45)
[2016-05-31] MEDS ORDERED: MILK OF MAGNESIA 30 ML SUSP PO PRN (23:45)
[2016-05-31 23:49] LABS: BLOOD, URINE NEGATIVE (NEGATIVE); COLOR,URINE YELLOW (YELLOW); LEUKOCYTE ESTERASE ,URINE NEGATIVE (NEGATIVE); NITRITE,URINE NEGATIVE (NEGATIVE)
[2016-05-31 23:57] LABS: AMPHETAMINE SCREEN,URINE NEGATIVE; BARBITURATE SCREEN,URINE NEGATIVE; BENZODIAZEPINES SCREEN,URINE POSITIVE; CANNABINOID SCREEN,URINE NEGATIVE; COCAINE SCREEN,URINE NEGATIVE; METHADONE SCREEN, URINE NEGATIVE; METHAMPHETAMINE SCREEN, URINE NEGATIVE; OPIATE SCREEN,URINE NEGATIVE; PHENCYCLIDINE SCREEN,URINE NEGATIVE; TRICYCLIC ANTIDEPRESSANT,URINE NEGATIVE
[2016-06-01] VITALS (47 sets, daily range): BP systolic 124–193; BP diastolic 73–104; PULSE 58–77; RESP 7–29; TEMP 96.5–98.7; O2SAT 90–97; Ht 182.9 cm; Wt 98.2 kg
--- NOTE | 2016-06-01 | NUR ---
REPORT GIVEN TO MARGO DENNISON.
[2016-06-01] MEDS ORDERED: CARI350T PO (00:04)
--- OUTSIDE RECORDS SUMMARY | 2016-06-01 00:07 | XMS REPORT | Continuity of Care Document ---
Author Author [facility] Organization [facility] Address Unknown Phone Unavailable Allergies [...] chemistry 04/07/2016 Aguero Curt Final Z79.899 Other half-way (current) drug therapy 04/12/2016 Jung Michael Final [...] Procedures Code Description [place] [address] Esophagogastroduodenoscopy, flexible, transoral; diagnostic, including mayi 03/21/2015 [id number] Esophagogastroduodenoscopy, flexible, transoral; diagnostic, including mayi 04/09/2016 [...] Status Pt. Type Provider Facility Loc./Unit Complaint [id number] 04/17/2013 13:56:00 2013 15:51:[facility]
--- NOTE | 2016-06-01 00:15 | NUR ---
DEPART PT IS TRANSFERRED VIA CART TO CCU AT THIS TIME. MARGO RN IS PRESENT ON ARRIVAL AND CARE IS TRANSFERRED. PT TRANSFERS SELF FROM CART TO BED.
--- NOTE | 2016-06-01 00:15 | NUR ---
ADMIT TO CCU 5 AT THIS TIME FROM ED, IN NO ACUTE DISTRESS, WILL CONTINUE TO MONITOR.
[2016-06-01] MEDS ORDERED: HYDROXYZINE (00:43)
[2016-06-01] MEDS ORDERED: SPIR25TA PO (00:43)
[2016-06-01] MEDS ORDERED: GABAPENTIN (00:43)
[2016-06-01] MEDS ORDERED: CLONIDINE (00:43)
[2016-06-01] MEDS: ACETAMINOPHEN 500 MG TABLET PO PRN ×4 (00:51→20:05)
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
--- NOTE | 2016-06-01 05:42 | NUR ---
STATUS PT HAS BEEN RESTING IN BED, A/O TO NAME AND PLACE, VERBALIZES THE YEAR IS 2008, VSS, O2 MAINTAINED ON RA, VOIDING ADEQUATELY, WILL CONTINUE TO MONITOR.
--- NOTE | 2016-06-01 08:29 | NUR ---
STATUS PT REPORTS DUCKWORTH PAIN 9-11/16. CALLED RN FOR PRN TYLENOL NEXT DOSE BECAME AVAILABLE.
[2016-06-01] MEDS ORDERED: LISI1TAB13 PO (09:26)
[2016-06-01] MEDS ORDERED: ALPR0.5T8 PO (09:26)
[2016-06-01] MEDS ORDERED: PARO10TA72 PO (09:27)
[2016-06-01] MEDS ORDERED: CLON0.1T PO (09:30)
--- NOTE | 2016-06-01 09:30 | NUR ---
STATUS PT IS A&OX3. VSS. PT DENIES DESIRE/PLAN TO HARM SELF. PT STATES, "I NEVER FEEL LIKE HURTING MYSELF." PT REPORTS THAT HE TAKES INCREASED SOMA AT TIMES. PT DENIES NEED FOR LAXATIVE STATING, "I HAVE IRRITABLE BOWEL SYNDROME. IT'S GONNA BE WHATEVER IT IS." PT IS RESTING COMFORTABLY IN BED WATCHING TV.
[2016-06-01] MEDS ORDERED: GABA-338 PO (09:31)
[2016-06-01] MEDS ORDERED: OMEP20CA10 PO (09:31)
--- NOTE | 2016-06-01 10:39 | NUR ---
CM THIS WORKER MET WITH PT ON THIS DATE. THIS WORKER INTRODUCED SELF AND ROLE OF CASE MANAGEMENT. THIS WORKER INQUIRED REGARDING CIRCUMSTANCES REGARDING ADMISSION TO THE HOSPITAL. PT REPORTED THAT IT WAS AN "ACCIDENT." PT EXPLAINED THAT HE WAS TAKING TOO MUCH OF HIS MEDICATIONS BECAUSE HE WANTED TO SLEEP. PT EXPLAINED THE LOCK BOX THAT HE HAS IN HIS HOME AND THAT HE WAS ABLE TO GAIN ACCESS TO ALL OF THE MEDICATIONS. PT REPORTED THAT HE DRINKS ALCOHOL ON OCCASION WITH LAST DRINK BEING ON 05/28/16. PT REPORTED THAT HE HAS THERAPY IN [place] AT [facility] FOR DRUG AND ALCOHOL ABOUT EVERY TWO WEEKS. PT REPORTED THAT HE HASN'T BEEN TO THERAPY IN ABOUT ONE MONTH. THIS WORKER INQUIRED REGARDING ANY THOUGHTS OF HARM TO SELF. PT DENIED THAT HE WAS WANTING TO HURT HIMSELF AND THAT THIS WAS AN "ACCIDENT." PT REPORTED THAT HE LIVES ALONE. PT REPORTED THAT HE HAS BEEN TO LIVE IN ASSISTED LIVING IN THE PAST AND WOULD ONLY WANT TO GO TO ONE IF IT "WAS A GOOD ONE." PT INQUIRED REGARDING ASSISTED LIVING FACILITIES IN THE AREA. UPDATE TO PHYSICIAN AND PRIMARY NURSE ON THIS DATE. THIS WORKER WILL CONTINUE TO ASSIST IN DISCHARGE PLANNING INDICATED BASED ON RECOMMENDATIONS.
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
[2016-06-01] MEDS: GABAPENTIN 300 MG CAPSULE PO SCH ×2 (15:22→21:34)
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
[2016-06-01] MEDS ORDERED: POTASSIUM CHLORIDE 20 MEQ TABLET PO ONE (16:15)
[2016-06-01] MEDS ORDERED: LOPERAMIDE 2 MG CAPSULE PO ONE (17:00)
--- NOTE | 2016-06-01 17:11 | NUR ---
MONISHA THIS WORKER MET WITH PT AGAIN ON THIS DATE. ALSO PRESENT WAS MOTHER OF PT. THIS WORKER EXPLAINED CONDITION CODE 44 AND ANSWERED QUESTIONS OF PT AND MOTHER. THIS WORKER FURTHER SPOKE WITH PT REGARDING DISMISSAL NEEDS. PT EXPLAINED THAT HE HAS BEEN INPATIENT TREATMENT BEFORE IN 1989 AT [facility]. PT INTERESTED IN WHAT THE RECOMMENDATIONS WOULD BE REGARDING HIS DISCHARGE PLAN. PT REPORTED THAT HE WOULD NOT GO INPATIENT WILLINGLY. PT REPORTED THAT HE IS OPEN TO MENTAL HEALTH SERVICES AND IS CURRENTLY RECEIVING SERVICES THROUGH [facility] [place]. MOTHER EXPLAINED THAT SHE HAD SPOKEN WITH DR. MAYNARD'S NURSE TODAY AND THEY RECOMMEND THAT PT GO TO [place]. MOTHER EXPRESSED THAT SHE ALSO THOUGHT HE SHOULD GO TO [place]. ANTONIETA EXPLAINED THAT HE WAS ONLY INTERESTED IN RETURNING HOME. PT THEN BEGAN TO EXPLAINED THAT HE IS GRATEFUL TO BE ALIVE AND THAT "SHE (POINTING TO HIS MOTHER) SAVED MY LIFE." PT BECAME TEARFUL AT THIS TIME AND SAID THAT WAS ALL HE HAD TO SAY ABOUT THAT TOPIC. PT REPORTED THAT HE KNOWS THAT HIS MOTHER WANTS HIM TO GO TO A SHELTER OR ASSISTED LIVING FACILITY. PT REPORTED THAT HE IS OKAY WITH GOING TO AN ASSISTED LIVING FACILITY, BUT ONLY IF HE IS ABLE TO "COME AND GO HE PLEASED." THIS WORKER INQUIRED WITH PT IF HE WAS INTERESTED IN COMPLETING A DPOA. PT EXPLAINED THAT HE DIDN'T WANT TO DO THAT RIGHT NOW. PT EXPRESSED CONCERN ABOUT "TURNING HIS LIFE OVER TO HIS MOTHER." MOTHER OPENLY ADMITTED TO PT THAT SHE THOUGHT THAT HE NEEDED TO BE IN A HOSPITAL OR SHELTER. PT EXPLAINED THAT WAS THE REASON THAT HE DIDN'T WANT TO DO A DPOA. UPDATE TO PRIMARY NURSE ON THIS DATE. CASE MANAGEMENT WILL CONTINUE TO FOLLOW AND ASSIST IN DISCHARGE PLANNING RECOMMENDED.
[2016-06-01] MEDS: LISINOPRIL/HCTZ 20mg/25mg TABLET PO SCH (17:22)
--- NOTE | 2016-06-01 20:00 | NUR ---
Pain Pt denies pain upon assessment this diana, but then puts application systems architect light a few minutes after this RN leaves room and c/o 8/10 DUCKWORTH pain. Pt states he has had DUCKWORTH pain throughout night last night and today. Pt asks for Tylenol. PRN Tylenol admin per pt request. Will continue to monitor.
[2016-06-01] MEDS: LOPERAMIDE 2 MG CAPSULE PO SCH (20:04)
--- NOTE | 2016-06-01 20:16 | NUR ---
Nausea Pt c/o being nauseated. Pt spits up clear liquid sputum. Offered PRN Zofran. Pt refuses. Pt takes both a wet and dry rag for mouth/face. Pt states he'll be ok and refuses any other cares. Will continue to monitor.
[2016-06-01] MEDS: OMEPRAZOLE 20 MG CAPSULE PO SCH (21:34)
[2016-06-01] MEDS: ASPIRIN *EC* 81mg TABLET PO SCH (21:34)
[2016-06-01] MEDS: QUETIAPINE 100 MG TABLET PO SCH (21:34)
--- NOTE | 2016-06-01 22:50 | NUR ---
Pain/nausea reassess Pt denies pain and nausea at this time.
--- NOTE | 2016-06-01 23:00 | NUR ---
SCD's Pt refuses SCD's; education provided for SCD's to pt: to help prevent blood clots; Pt continues to refuse. SCD's removed per pt request.
[2016-06-02] VITALS (24 sets, daily range): BP systolic 142–200; BP diastolic 79–103; PULSE 53–70; RESP 15–29; TEMP 98–98.7; O2SAT 91–99
[2016-06-02] MEDS: ACETAMINOPHEN 500 MG TABLET PO PRN ×3 (04:16→21:03)
--- NOTE | 2016-06-02 06:27 | NUR ---
Status Pt slept a "little" during night. Pt c/o pain in head rating 8/10 during night. Pt requests Tylenol for headache pain. Pt states Tylenol helps his headache pain. Pt on RA with sats stable in 90's. BP noted to be elevated throughout night w/SBP mostly 150's to 170's. HR mostly 60's, although noted to drop down to mid/upper 40's briefly at times last diana. Pt pleasant and cooperative with cares. Pt up with standby assist during night, pt refuses walker during night. Pt quite steady on feet during night. Bed alarm on, will continue to monitor.
[2016-06-02 07:04] LABS: ANION GAP 10 MEQ/L (5-15); BUN/CREATININE RATIO 9 RATIO (6-26); CALCIUM 8.9 MG/DL (8.4-10.2); CHLORIDE 104 MEQ/L (98-107); CO2 - CARBON DIOXIDE 29 MEQ/L (22-30); CREATININE 0.8 MG/DL (0.8-1.5); GLOMERULAR FILTRATION RATE 97; GLUCOSE 89 MG/DL (75-110); POTASSIUM 3.4 MEQ/L (3.6-5); SODIUM 143 MEQ/L (134-144)
[2016-06-02] MEDS ORDERED: LISINOPRIL/HCTZ 20mg/25mg TABLET PO SCH (09:00)
--- NOTE | 2016-06-02 09:00 | NUR ---
AMBULATION PT DECLINES AMBULATION. PT STATES, "I AM TOO UNSTABLE FOR THAT. BUT, I'LL TELL YOU WHAT, I CANNOT LAY IN THIS BED ALL DAY." RN ENCOURAGED PT TO WALK IN ORDER TO IMPROVE INSTABILITY, PT CONTINUES TO DECLINE.
[2016-06-02] MEDS ORDERED: POTASSIUM CHLORIDE 20 MEQ TABLET PO ONE (09:45)
[2016-06-02] MEDS: GABAPENTIN 300 MG CAPSULE PO SCH ×3 (10:20→21:02)
[2016-06-02] MEDS: LISINOPRIL/HCTZ 20mg/25mg TABLET PO SCH (10:20)
[2016-06-02] MEDS: LOPERAMIDE 2 MG CAPSULE PO SCH ×2 (10:20→21:02)
--- NOTE | 2016-06-02 10:48 | NUR ---
PHYSICAL THERAPY PT DECLINED TREATMENT DUE TO "INSTABILITY." PHYSICAL THERAPY REPORTS PT AGREES TO RECONSIDER THIS AFTERNOON.
[2016-06-02] MEDS: CLONIDINE 0.1 MG TABLET PO SCH ×2 (11:27→21:02)
[2016-06-02] MEDS: IBUPROFEN 800 MG TABLET PO PRN ×2 (11:28→18:16)
[2016-06-02] MEDS ORDERED: ALPRAZOLAM 0.5 MG TABLET PO ONE ×2 (11:30→18:00)
--- NOTE | 2016-06-02 11:44 | DSPDOC ---
[facility] Date Date DATE: 06/02/16 TIME: 11:34 Attending Physician Margo Hussein MD Admitting Physician Margo Hussein MD Consulting Physician Mayelin Saunders MD Admitting Diagnosis Soma Overdose Discharge Diagnosis 1. Soma overdose 2. Depression/anxiety disorder 3. Hypertension 4. Chronic back pain 5. Ambulatory dysfunction with falls 6. Hypokalemia 7. Chronic back pain Laboratory Laboratory Tests Test 05/31/16 23:41 06/02/16 05:59 Urine Collection Type Cleancatch-midstream Urine Color Yellow (YELLOW) Urine Turbidity Clear (CLEAR) Urine pH 6.0 (5.0-8.0) Urine Specific [place] 1.020 (1.015-1.025) Urine Protein Negative (NEGATIVE) Urine Glucose (UA) Negative (NEGATIVE) Urine Ketones Trace (NEGATIVE) Urine Blood Negative (NEGATIVE) Urine Nitrite Negative (NEGATIVE) Urine Bilirubin 1+ (NEGATIVE) Urine Urobilinogen 1.0EU/DL (NORMAL) Urine Leukocyte Esterase Negative (NEGATIVE) Urinalysis Comment Microscopic not ind. Urine Opiates Screen NegativeNG/ML Urine Oxycodone Screen NegativeNG/ML Urine Methadone Screen NegativeNG/ML Urine Propoxyphene Screen NegativeNG/ML Urine Barbiturates Screen NegativeNG/ML Urine Tricyclic Antidepressants NegativeNG/ML Urine Phencyclidine Screen NegativeNG/ML Urine Amphetamines Screen NegativeNG/ML Urine Methamphetamines Screen NegativeNG/ML Urine Benzodiazepines Screen PositiveNG/ML Urine Cocaine Screen NegativeNG/ML Urine Cannabinoids Screen NegativeNG/ML Urine Drug Screen Confirmation Sent out Turbidity < 20 (0-20) Sodium Level 143MEQ/L (134-144) Potassium Level 3.4MEQ/L (3.6-5) Chloride Level 104MEQ/L (98-107) Carbon Dioxide Level 29MEQ/L (22-30) Anion Gap 10MEQ/L (5-15) Blood Urea Nitrogen 7.0MG/DL (9-20) Creatinine 0.8MG/DL (0.8-1.5) Glomerular Filtration Rate Calc 97 BUN/Creatinine Ratio 9RATIO (6-26) Glucose Level 89MG/DL (75-110) Calculated Osmolality 272MOSM/KG (261-280) Calcium Level 8.9MG/DL (8.4-10.2) Icterus Index < 2 (0-7) Chemistry Specimen Hemolysis < 15 (0-25) History of Present Illness CC: Soma overdose HPI: Mr. Benjamin is 66-year-old male with chronic depression and ambulatory dysfunction. He's had a number of falls recently. He describes taking multiple doses of Soma over a 6 hour period yesterday to "get high". He denies intent to harm himself but acknowledges that he doesn't feel that life is worth living. He indicates he simply got carried away and took too many pills with estimated ingestion of Soma at about 60 pills. Meds are generally locked with his mother setting up a days worth of medications at a time but the patient broke into the locked box to access additional doses of Soma. Patient reports becoming very drowsy as a result and describes himself as "loaded" with difficulty ambulating and having multiple falls last night. He denies nausea, vomiting, or incontinence but acknowledges that memory of events of last night or unclear. His mother apparently tried to contact him and he indicated that he needed help and she subsequently arrived and coordinate transportation to the emergency room. He was admitted for further management due to Soma overdose. Patient denies ingestion of any other medications or alcohol. Hospital Course Soma overdose Depression/questionable bipolar affective disorder Hypertension Chronic back pain Irritable bowel syndrome Ambulatory dysfunction with falls Hypokalemia-present on admission 06/01/16 Admitted with Soma overdose with intent of getting high; patient denies suicidal intent. Psychiatric consultation requested, discussed with Dr. Hodge. Resume Seroquel at 150 mg at bedtime, SSRI on hold pending further recommendations. Significant depressive symptoms present. PT consultation for falls. Resume lisinopril/HCTZ for blood pressure and replace potassium. Continue close observation in ICU. May require inpatient psychiatric stay for stabilization. Observation status. 06/02/16 Nursing reports increased anxiety and blood pressure this morning. Patient complains of headache and feels like he is developing a panic attack with increasing dyspnea and palpitations although did not origin that when he looks at the heart monitor his heart rate is normal. He generally uses ibuprofen for his headache and Tylenol has not helped overnight. He feels steady on his feet but has declined ambulating in the halls. He reports anxiety is a chronic problem and agrees to inpatient psychiatric care with the goal of stabilizing depression and anxiety. Patient continued to deny suicidal intent with medication ingestion but does not feel life is worth living. On examination the patient is alert and in no acute distress although blood pressures are moderately elevated with systolics of 160-180 overnight and this morning. Respirations are nonlabored and cardiac rhythm regular. Patient is moving all extremities well and sensation is intact 4 extremities. Patient describes using Klonopin in the past but having no current prescription and has been using alprazolam (which he hints may be prescribed for his mother rather than for him). Single dose of alprazolam being given now and clonidine resumed for hypertension. Based on patient described outpatient blood pressures , suspect blood pressure control chronically inadequate and will increase clonidine to twice a day from daily at bedtime. Discharge to [facility] today. Discussed with social work. >30 minutes spent on patient care and discharge care coordination today on the date of discharge. -- Problems: (1) Drug overdose, intentional Status: Acute Code Status Full Code Home Meds Active Scripts Quetiapine Fumarate (Quetiapine Fumarate) 100 Mg Tablet, 150 MG PO HS for 7 Days , #11 TAB Prov:MARGO HUSSEIN MD 06/02/16 Ibuprofen (Ibuprofen) 800 Mg Tablet, 800 MG PO TID Y for HEADACHE for 14 Days, # 42 TAB Prov:MARGO HUSSEIN MD 06/02/16 Acetaminophen (Tylenol Extra Strength) 500 Mg Tablet, 1000 MG PO Q6H Y for PAIN for 14 Days, #112 TAB Prov:MARGO HUSSEIN MD 06/02/16 Clonidine HCl (Clonidine HCl) 0.1 Mg Tablet, 0.1 MG PO BID, #60 Prov:MARGO HUSSEIN MD 06/02/16 Reported Medications Omeprazole (Omeprazole) 20 Mg Capsule.dr, 20 MG PO HS 06/01/16 Gabapentin (Gabapentin) 300 Mg Capsule, 300 MG PO TID 06/01/16 Lisinopril/Hydrochlorothiazide (Lisinopril-Hctz 20-25 mg Tab) 1 Each Tablet, 1 TAB PO DAILY 06/01/16 Aspirin *EC* (Aspirin EC) 81 Mg Tablet.dr, 81 MG PO HS 04/15/16 Loperamide HCl (Anti-Diarrheal) 2 Mg Tablet, 2 MG PO BID 04/15/16 Multivitamins (Multivitamin) 1 Tab Tablet, 1 TAB PO DAILY, TAB 03/09/13 Discontinued Reported Medications Paroxetine HCl (Paroxetine HCl) 10 Mg Tablet, 10 MG PO DAILY TAKE WITH 40 MG TO EQUAL 50 MG DAILY 06/01/16 Alprazolam (Alprazolam) 0.5 Mg Tablet, 0.5 MG PO TID 06/01/16 Carisoprodol (Soma) 350 Mg Tablet, 350 MG PO QID 06/01/16 Quetiapine Fumarate (Seroquel) 300 Mg Tablet, 300 MG PO HS, TAB 03/09/13 Albuterol Sulfate (Proair Hfa) 8.5 Gm Aerosol, 1 PUFF INH PRN 12/22/12 Paroxetine Hcl (Paroxetine Hcl) 40 Mg Tablet, 40 MG PO HS TAKE WITH 10 MG TO EQUAL 50 MG DAILY 12/22/12 Carisoprodol (Soma) 350 Mg Tablet, 350 MG PO QID 12/22/12 Face to Face Encounter I met with patient on the day of dismissal and discussed follow up appointments , medications, and safety plan. Discharge Disposition [facility] To [facility]: TIFFANY MAYNARD MD [facility] To 2: MAYELIN SAUNDERS MD, ROBERTA L MD Jun 02, 2016 11:42
[2016-06-02] MEDS ORDERED: IBUP-1547 PO (11:50)
[2016-06-02] MEDS ORDERED: CLON0.1T PO (11:50)
[2016-06-02] MEDS ORDERED: ACET-2723 PO (11:50)
[2016-06-02] MEDS ORDERED: QUET100T69 PO (11:50)
--- NOTE | 2016-06-02 12:13 | NUR ---
CM THIS WORKER MET WITH PT ON THIS DATE. PT REPORTED HE WAS IN AGREEMENT WITH PLAN TO GO TO [facility] ON THIS DATE. THIS WORKER EXPLAINED THAT PT'S MOTHER HAD CALL INQUIRING ABOUT HIS PLAN AND DISCHARGE RECOMMENDATIONS. PT AGREEABLE FOR THIS WORKER TO SHARE THIS INFORMATION WITH MOTHER. PT EXPRESSED SOME CONTINUED ANXIETY WITH NO CHANGE IN THE MEDICATIONS THAT THE DOCTOR HAD JUST PRESCRIBED. THIS WORKER NOTIFIED PRIMARY NURSE ON THIS DATE. THIS WORKER CALLED AND SPOKE TO MOTHER AND PROVIDED DISCHARGE PLAN. MOTHER IN AGREEMENT WITH PLAN AND IS PLANNING A VISIT TODAY WITH PT.
[2016-06-02] MEDS ORDERED: LORAZEPAM 2 MG/ML INJECTION IV ONE (12:15)
--- NOTE | 2016-06-02 20:15 | NUR ---
[facility] Pt updated on transfer to [facility] this evening. Pt states, "I'm not going in the middle of the night." RN notifies pt that it is 8pm and we will be looking at transferring soon. States, "You call your drMarco Not Dr. Hussein. And tell him that I'm sleeping here tonight." RN provided education on discharge and transfer. However, pt uninterested. Will notify physician. [employer] updated. Addendum: 06/02/16 at 2050 by HARSHIL JARVIS RN Per physician, he will need to transfer tonight as arranged. RN contacted [facility] and [employer] for update. State they will contact RN when they are ready for patient acceptance.
[2016-06-02] MEDS: ASPIRIN *EC* 81mg TABLET PO SCH (21:02)
[2016-06-02] MEDS: OMEPRAZOLE 20 MG CAPSULE PO SCH (21:02)
[2016-06-02] MEDS: QUETIAPINE 100 MG TABLET PO SCH (21:03)
--- NOTE | 2016-06-02 21:20 | NUR ---
Discharge Pt discharged to [facility]. Accompanied by this RN and Occupational Health And Safety Officer, Bijal. Belongings with patient. JUMA Rice, received pt. Pt in good spirits. VSS. C/o neck pain from compression fx's. Administered PRN Tylenol prior to transfer.
== END 2016-06-02 21:20 ==
LOC: ED 22:19 → UNDOADMIN 23:41 → CCU 23:41 → EDHOLD 23:41 → INTOOBSV 23:41 → EDHOLD 06-01 00:15 → CCU 06-01 00:15
PROVIDERS: ADMIT Internal Medicine; ATTEND Internal Medicine
DX: T42.8X2A Poisoning by antiparkinsonism drugs and other central muscle-tone depressants, intentional self-harm, initial encounter (principal); R27.0 Ataxia, unspecified; R29.6 Repeated falls; Y92.018 Other place in single-family (private) house as the place of occurrence of the external cause; F41.8 Other specified anxiety disorders; I10 Essential (primary) hypertension; G89.29 Other chronic pain; M54.9 Dorsalgia, unspecified; E87.6 Hypokalemia; K58.1 Irritable bowel syndrome with constipation; F10.10 Alcohol abuse, uncomplicated; F13.10 Sedative, hypnotic or anxiolytic abuse, uncomplicated; F11.10 Opioid abuse, uncomplicated; F17.210 Nicotine dependence, cigarettes, uncomplicated; Z79.82 Long term (current) use of aspirin; Z79.899 Other long term (current) drug therapy; K44.9 Diaphragmatic hernia without obstruction or gangrene
CPT/HCPCS: 36415; 51701; 80048; 80053; 80307; 81003; 85025; 93005; 99285; G0378; G0379; G8978; G8979; G8980; J2060; 80306; 99218

== ENCOUNTER 2016-06-02 21:20 | Inpatient (IN) | payer MEDICAID ==
[~2016-06-02] VITALS: Ht 182.9 cm; Wt 99.3 kg
[~2016-06-02 21:20] MED LIST changes: +ACET-2723 PO; +ALPR0.5T8 PO; +CARI350T PO; +CLON0.1T PO; +CLONIDINE; +GABA-338 PO; +GABAPENTIN; +HYDROXYZINE; +IBUP-1547 PO; +LISI1TAB13 PO; +OMEP20CA10 PO; +PARO10TA72 PO; +QUET100T69 PO; +SPIR25TA PO
--- NOTE | 2016-06-02 21:20 | NUR ---
Admission Pt is 66 y/o male transferred to [facility] via WC to room 193 from [facility]U unit. Pt accompanied by supervisor aircraft maintenance and Jing RN from CCU. Pt is SBA x 1 to FWW. Steady gait. Pt alert/oriented x 4. Pt is in pleasant mood with appropriate affect. Behavior is calm and cooperative. Hygiene clean, dressed in hospital gown from CCU. Pt presents with bruises on left back large and dark purple, approximately 6 inches in length. Another bruise with yellowing in color on right back size of baseball. And another bruise yellow and brown in color on left upper abdomen. Pt states it is from past fall. States he gets bruised up a lot. No skin tears or wounds noted. No valuables came with pt, only the clothes he was admitted to CCU with. When asked why pt is here in hospital, pt stated "I OD'd on Soma on accident, I took pills on purpose and ended up overdosing. I went through whole bottle in couple days" When asked if pt was trying to cause harm to self or SI, pt replied "I would NEVER think about suicide. I was just thinking about relief from pain in back and this DUCKWORTH I have had for a while. Pt is oriented to the unit and to the room and call light use. Pt stated he is familiar with how to use the bed as it is similar with the unit he came from. Pt currently sitting out in day room watching tv. States he usually don't go to bed until 3 or 4 in morning. Will continue to monitor
[2016-06-02 22:00] VITALS: BP 153/98; PULSE 65; RESP 16; TEMP 97.6; O2SAT 94
--- OUTSIDE RECORDS SUMMARY | 2016-06-02 22:21 | XMS REPORT | Continuity of Care Document ---
Author Author [facility] Organization [facility] Address Unknown Phone Unavailable Allergies Active Description [...] chemistry 04/07/2016 Aguero Curt Final Z79.899 Other custodial (current) drug therapy 04/12/2016 Jung Michael Final [...] Procedures Code Description [place] [address] Esophagogastroduodenoscopy, flexible, transoral; diagnostic, including mayi 03/21/2015 91310 Esophagogastroduodenoscopy, flexible, transoral; diagnostic, including mayi 04/09/2016 [...] Status Pt. Type Provider Facility Loc./Unit Complaint [id number] 04/17/2013 13:56:00 2013 15:51:00 [facility]
--- OUTSIDE RECORDS SUMMARY | 2016-06-02 22:22 | XMS REPORT | Continuity of Care Document ---
Author Author [facility] Organization [facility] Address Unknown Phone Unavailable Care Team Providers Care [employer] Workman Name Role Phone TIFFANY MAYNARD MD Primary Care Physician [phone] Insurance Providers Guarantor Jeremi Braswell Address [address] [place] [address] Email DENIED 06-01-16 Payer [facility] Plan Policy Number [id number] Subscriber's Name Jeremi Braswell Relationship 18 Self Effective Date 16 Expiration Date 16 Advance Directives Directive Response Recorded Date/Time Advanced Directives Type None 06/11/13 9:15am Ordered Resuscitation Status Full Code 06/10/13 2:10pm Problems Active Problems Medical Problem Onset Date Status Bipolar 1 disorder Unknown Chronic back pain Unknown Drug abuse Unknown HTN (hypertension) Unknown Mood disorder Unknown Sedative, hypnotic or anxiolytic use, unspecified with other sedative, hypnotic or anxiolytic-induced disorder Unknown Suicide attempt by substance overdose Unknown Past Problems Medical Problem Onset Date Alcohol intoxication Unknown Drug overdose, intentional Unknown Laceration of forehead, complicated Unknown Loss of consciousness Unknown Medications Current Home Medications Medication Dose Units Route Directions Days Qty Instructions Start Date Acetaminophen (Tylenol Extra Strength) 500 Mg Tablet 1,000 Mg Oral Every 6 Hours as needed for Pain 14 Days 112 Tablet 06/02/16 Aspirin (Aspirin Ec) 81 Mg Tablet. 81 Mg Oral Bedtime 04/15/16 Clonidine Hcl 0.1 Mg Tablet 0.1 Mg Oral Twice A Day 60 06/02/16 Gabapentin 300 Mg Capsule 300 Mg Oral Three Times A Day 06/01/16 Ibuprofen 800 Mg Tablet 800 Mg Oral Three Times A Day as needed for Headache 14 Days 42 Tablet 06/02/16 Lisinopril/Hydrochlorothiazide (Lisinopril-Hctz 20-25 Mg Tab) 1 Each Tablet 1 Tab Oral Daily 06/01/16 Loperamide Hcl (Anti-Diarrheal) 2 Mg Tablet 2 Mg Oral Twice A Day 04/15/16 Multivitamins (Multivitamin) 1 Tab Tablet 1 Tab Oral Daily Omeprazole 20 Mg Capsule.dr 20 Mg Oral Bedtime 06/01/16 Quetiapine Fumarate 100 Mg Tablet 150 Mg Oral Bedtime 7 Days 11 Tablet 06/02/16 Past Home Medications Medication Directions Ordered Status Albuterol Sulfate (Proair Hfa) 8.5 Gm Aerosol, 1 Puff Inhalation As Needed Discontinued Alprazolam 0.5 Mg Tablet, 0.5 Mg Oral Three Times A Day 06/01/16 Discontinued Carisoprodol (Soma) 350 Mg Tablet, 350 Mg Oral Four Times Daily 06/01/16 Discontinued Carisoprodol (Soma) 350 Mg Tablet, 350 Mg Oral Four Times Daily 12/22/12 Discontinued Clonidine Hcl 0.1 Mg Tablet, 0.1 Mg Oral Bedtime 06/01/16 Discontinued Omeprazole (Prilosec) 20 Mg Capsule.dr, 20 Mg Oral Daily 01/02/08 Discontinued Paroxetine Hcl 40 Mg Tablet, 40 Mg Oral Bedtime 12/22/12 Discontinued Paroxetine Hcl 10 Mg Tablet, 10 Mg Oral Daily 06/01/16 Discontinued Quetiapine Fumarate (Seroquel) 300 Mg Tablet, 300 Mg Oral Bedtime 03/09/13 Discontinued Social History Social History Problem Response Recorded Date/Time Onset Date Status Reason for Hospitalization overdose 06/02/2016 9:37pm Not Applicable Not Applicable Chewing Tobacco Status No 06/11/2013 9:20am Not Applicable Not Applicable Hx Substance Use Y HX OF, PT DENIES 05/31/2016 11:55pm Not Applicable Not Applicable Hx Alcohol Use Y HX OF ACCORDING TO [place] ON SCENE, PT DENIES 05/31/2016 11: 55pm Not Applicable Not Applicable Has the pt used tobacco in the last 12 months Yes 06/01/2016 12:37am Not Applicable Not Applicable Query Response Start Date Stop Date Smoking Status Current every day smoker Hospital Discharge Instructions Instructions: Care Instructions: Discharge Diet: regular Discharge Activity: As tolerates Follow Up Appointments: To be determined Pending Lab / Results: No Pending Lab Patient Instructions: Not applicable currently Expected Signs/Symptoms: Generalized myalgias, anxiety Notify Physician If: To be determined During Business Hours:: Not applicable currently After Business Hours:: Not applicable currently Pain Management/Treatment: Tylenol or ibuprofen as directed Wound/Incision Care: Not applicable Durable Medical Equipment: None Condition at time of discharge: Good Plan of Care Discharge Date 06/02/16 9:20pm Disposition 67 TO [facility] Prescriptions See Medication Section Care Plan and Goals See Discharge Instructions Section Functional Status Query Response Date Recorded Mobility Status Ambulatory June 01, 2016 12:58am Assistive Devices None June 01, 2016 12:58am Activity Limitations Fatigue June 01, 2016 12:58am Feeding Ability Independent June 01, 2016 12:58am Toileting Ability Independent June 01, 2016 12:58am Grooming Ability Independent June 01, 2016 12:58am Dressing Ability Independent June 01, 2016 12:58am Housework Ability Independent June 01, 2016 12:58am Meal Preparation Ability Independent June 01, 2016 12:58am Stair Climbing Ability Independent June 01, 2016 12:58am Ability to complete ADL's impeded by Change in Behavior Change in Cognition June 01, 2016 12:58am Cognitive/Perceptual Impairments Impaired vision June 01, 2016 12:58am Visual Assistive Devices Glasses With patient June 01, 2016 12:58am Allergies, Adverse Reactions, Alerts Allergen Type Severity Reaction Status Last Updated No Known Drug Allergies Allergy Unknown Active 05/31/16 Immunizations Query Response on File Recorded Date/Time Hx Influenza Vaccination No 06/01/16 12:37am Hx Pneumococcal Vaccination No 06/01/16 12:37am Hx Influenza Vaccination No 06/01/16 12:37am Tdap Vaccine Hx UNKNOWN 04/15/16 10:56am Vital Signs Acute Vital Signs Vital Response Date/Time Temperature (Fahrenheit) 98.0 deg F (96.8 - 99.1) 06/02/2016 4:00pm Temperature (Calculated Celsius) 36.76332 degrees C (36.0 - 37.3) 06/02/2016 4:00pm Pulse Rate (adult) 60 bpm (60 - 100) 06/02/2016 8:32pm Respiratory Rate 18 breaths/min (10 - 20) 06/02/2016 8:32pm O2 Sat by Pulse Oximetry 97 % (90 - 100) 06/02/2016 8:00pm Oxygen Delivery Method Room Air 06/02/2016 8:00pm Blood Pressure 174/96 mm Hg 06/02/2016 8:00pm Blood Pressure Source Automatic Cuff 06/02/2016 8:00pm Height (Feet) 6 feet 06/01/2016 3:31pm Height (Inches) 0.00 inches 06/01/2016 3:31pm Weight (Kilograms) 98.200 kg 06/02/2016 8:00am Body Mass Index (BMI) 28.9 06/01/2016 12:32am Results Laboratory Results Test Name Result Units Flags Reference Collection Date/Time Result Date/ Time Comments Troponin I < 0.012 ng/ml 0-0.12 04/15/2016 11:49am 04/15/2016 12:23pm Troponin values with a difference of 55% increase from orginal troponin value represent a true biological DELTA value. (%increase Calc=Orginal Troponin value, divided by subsequent Troponin value, multiplied by 100) Lipase 79 U/L 23-300 04/15/2016 11:49am 04/15/2016 12:10pm Prolactin 16.1 NG/ML 04/15/2016 11:49am 04/15/2016 12:26pm Normal Female (Non-): 3.0-18.6 ng/ml; Males: 3.7-17.9 ng/ml White Blood Count 7.3 T/MM3 4.5-11.0 05/31/2016 10:43pm 05/31/2016 10: 54pm Red Blood Count 4.27 M/MM3 L 4.50-5.90 05/31/2016 10:43pm 05/31/2016 10: 54pm Hemoglobin 14.6 GM/DL 13.5-17.5 05/31/2016 10:43pm 05/31/2016 10:54pm Hematocrit 41.1 % 41-53 05/31/2016 10:43pm 05/31/2016 10:54pm Mean Corpuscular Volume 96.3 UM3 80-100 05/31/2016 10:43pm 05/31/2016 10:54pm Mean Corpuscular Hemoglobin 34.2 UUG H 26-34 05/31/2016 10:432016 10:54pm Mean Corpuscular Hemoglobin Concent 35.5 GM/DL 31-37 05/31/2016 10:4305/31/2016 10:54pm RDW Standard Deviation 41.5 FL 36.9-50.2 05/31/2016 10:05/31/2016 10:54pm Platelet Count 181 T/MM3 130-400 05/31/2016 10:43pm 05/31/2016 10:54pm Mean Platelet Volume 9.5 UM3 9.4-12.4 05/31/2016 10:4305/31/2016 10: 54pm Neutrophils (%) (Auto) 47.8 % 33-66 05/31/2016 10:05/31/2016 10: 54pm Lymphocytes (%) (Auto) 34.6 % 23-45 05/31/2016 10:05/31/2016 10: 54pm Monocytes (%) (Auto) 10.3 % H 0-9.0 05/31/2016 10:43pm 05/31/2016 10: 54pm Eosinophils (%) (Auto) 6.7 % H 0-4 05/31/2016 10:05/31/2016 10: 54pm Basophils (%) (Auto) 0.5 % 0-2 05/31/2016 10:05/31/2016 10:54pm Immature Granulocyte % (Auto) 0.1 % 0.0-0.5 05/31/2016 10:2016 10:54pm Absolute Neutrophils (auto) 3.5 T/MM3 1.8-7.7 05/31/2016 10:2016 10:54pm Absolute Lymphocytes (auto) 2.5 T/MM3 1-4.8 05/31/2016 10:2016 10:54pm Absolute Monocytes (auto) 0.8 T/MM3 0-0.8 05/31/2016 10:2016 10:54pm Absolute Eosinophils (auto) 0.5 T/MM3 0-0.5 05/31/2016 10:2016 10:54pm Absolute Basophils (auto) 0.0 T/MM3 0-0.2 05/31/2016 10:43pm 2016 10:54pm Absolute Immature Granulocyte (auto 0.01 T/MM3 0.00-0.03 05/31/2016 10: 43pm 05/31/2016 10:54pm Icterus Index < 2 0-7 06/02/2016 5:59am 06/02/2016 7:04am Chemistry Specimen Hemolysis < 15 0-25 06/02/2016 5:59am 06/02/2016 7 :04am 0-25: Specimen Exhibited No Hemolysis. Turbidity < 20 0-20 06/02/2016 5:59am 06/02/2016 7:04am Sodium Level 143 MEQ/L 134-144 06/02/2016 5:59am 06/02/2016 7:04am Potassium Level 3.4 MEQ/L L 3.6-5 06/02/2016 5:59am 06/02/2016 7:04am Chloride Level 104 MEQ/L 98-107 06/02/2016 5:59am 06/02/2016 7:04am Carbon Dioxide Level 29 MEQ/L 22-30 06/02/2016 5:59am 06/02/2016 7: 04am Anion Gap 10 MEQ/L 5-15 06/02/2016 5:59am 06/02/2016 7:04am Blood Urea Nitrogen 7.0 MG/DL L 9-20 06/02/2016 5:59am 06/02/2016 7: 04am Creatinine 0.8 MG/DL 0.8-1.5 06/02/2016 5:59am 06/02/2016 7:04am BUN/Creatinine Ratio 9 RATIO 6-06/02/2016 5:59am 06/02/2016 7:04am Glomerular Filtration Rate Calc 97 06/02/2016 5:59am 06/02/2016 7: 04am Glucose Level 89 MG/DL 75-110 06/02/2016 5:59am 06/02/2016 7:04am Calculated Osmolality 272 MOSM/KG 261-280 06/02/2016 5:59am 06/02/2016 7:04am Calcium Level 8.9 MG/DL 8.4-10.2 06/02/2016 5:59am 06/02/2016 7:04am Total Bilirubin 0.60 MG/DL 0.20-1.30 05/31/2016 10:43pm 05/31/2016 11: 04pm Alkaline Phosphatase 71 U/L 38-126 05/31/2016 10:43pm 05/31/2016 11: 04pm Total Protein 7.0 G/DL 6.3-8.2 05/31/2016 10:43pm 05/31/2016 11:04pm Albumin 3.8 G/DL 3.5-5.0 05/31/2016 10:43pm 05/31/2016 11:04pm Globulin 3.2 G/DL 2.4-3.6 05/31/2016 10:43pm 05/31/2016 11:04pm Albumin/Globulin Ratio 1.2 RATIO 1.1-2.2 05/31/2016 10:43pm 05/31/2016 11:04pm Aspartate Amino Transf (AST/SGOT) 24 U/L 17-59 05/31/2016 10:43pm 05/31 11:04pm Alanine Aminotransferase (ALT/SGPT) 35 U/L 21-72 05/31/2016 10:43pm 11:04pm Acetaminophen Level < 10 UG/ML L 10-30 05/31/2016 10:43pm 05/31/2016 11: 04pm TOXIC <4 HR POST INGESTION: >150 MG/L; TOXIC <12 HR POST INGESTION: >50 MG/L Salicylates Level < 1.0 MG/DL L 2-20 05/31/2016 10:43pm 05/31/2016 11: 04pm Alcohol, Quantitative <10 MG/DL <10 05/31/2016 10:pm 05/31/2016 11: 04pm Urine Collection Type CLEANCATCH-MIDSTREAM 05/31/2016 11:41pm 05/31 11:49pm Urine Color YELLOW YELLOW 05/31/2016 11:41pm 05/31/2016 11:49pm Urine Turbidity CLEAR CLEAR 05/31/2016 11:41pm 05/31/2016 11:49pm Urine Specific [place] 1.020 1.015-1.025 05/31/2016 11:41pm 2016 11:49pm Urine pH 6.0 5.0-8.0 05/31/2016 11:41pm 05/31/2016 11:49pm Urine Leukocyte Esterase NEGATIVE NEGATIVE 05/31/2016 11:41pm 2016 11:49pm Urine Nitrite NEGATIVE NEGATIVE 05/31/2016 11:41pm 05/31/2016 11: 49pm Urine Protein NEGATIVE NEGATIVE 05/31/2016 11:41pm 05/31/2016 11: 49pm Urine Glucose (UA) NEGATIVE NEGATIVE 05/31/2016 11:41pm 05/31/2016 11 :49pm Urine Ketones TRACE A NEGATIVE 05/31/2016 11:41pm 05/31/2016 11:49pm Urine Urobilinogen 1.0 EU/DL NORMAL 05/31/2016 11:41pm 05/31/2016 11: 49pm Urine Bilirubin 1+ A NEGATIVE 05/31/2016 11:41pm 05/31/2016 11:49pm Urine Blood NEGATIVE NEGATIVE 05/31/2016 11:41pm 05/31/2016 11:49pm Urinalysis Comment MICROSCOPIC NOT IND. 05/31/2016 11:41pm 2016 11:49pm Name: JEREMI BRASWELL Unit #: [id number] : 1950 Sex: M DISCHARGE SUMMARY Admit Date: 05/31/16 Report #: [id number] [facility] General Date Date DATE: 06/02/16 TIME: 11:34 Attending Physician Margo Hussein MD Admitting Physician Margo Hussein MD Consulting Physician Mayelin Saunders MD Admitting Diagnosis Soma Overdose Discharge Diagnosis 1. Soma overdose 2. Depression/anxiety disorder 3. Hypertension 4. Chronic back pain 5. Ambulatory dysfunction with falls 6. Hypokalemia 7. Chronic back pain Laboratory Laboratory Tests Test 05/31/16 23:41 06/02/16 05:59 Urine Collection Type Cleancatch-midstream Urine Color Yellow (YELLOW) Urine Turbidity Clear (CLEAR) Urine pH 6.0 (5.0-8.0) Urine Specific [place] 1.020 (1.015-1.025) Urine Protein Negative (NEGATIVE) Urine Glucose (UA) Negative (NEGATIVE) Urine Ketones Trace (NEGATIVE) Urine Blood Negative (NEGATIVE) Urine Nitrite Negative (NEGATIVE) Urine Bilirubin 1+ (NEGATIVE) Urine Urobilinogen 1.0EU/DL (NORMAL) Urine Leukocyte Esterase Negative (NEGATIVE) Urinalysis Comment Microscopic not ind. Urine Opiates Screen NegativeNG/ML Urine Oxycodone Screen NegativeNG/ML Urine Methadone Screen NegativeNG/ML Urine Propoxyphene Screen NegativeNG/ML Urine Barbiturates Screen NegativeNG/ML Urine Tricyclic Antidepressants NegativeNG/ML Urine Phencyclidine Screen NegativeNG/ML Urine Amphetamines Screen NegativeNG/ML Urine Methamphetamines Screen NegativeNG/ML Urine Benzodiazepines Screen PositiveNG/ML Urine Cocaine Screen NegativeNG/ML Urine Cannabinoids Screen NegativeNG/ML Urine Drug Screen Confirmation Sent out Turbidity < 20 (0-20) Sodium Level 143MEQ/L (134-144) Potassium Level 3.4MEQ/L (3.6-5) Chloride Level 104MEQ/L (98-107) Carbon Dioxide Level 29MEQ/L (22-30) Anion Gap 10MEQ/L (5-15) Blood Urea Nitrogen 7.0MG/DL (9-20) Creatinine 0.8MG/DL (0.8-1.5) Glomerular Filtration Rate Calc 97 BUN/Creatinine Ratio 9RATIO (6-26) Glucose Level 89MG/DL (75-110) Calculated Osmolality 272MOSM/KG (261-280) Calcium Level 8.9MG/DL (8.4-10.2) Icterus Index < 2 (0-7) Chemistry Specimen Hemolysis < 15 (0-25) History of Present Illness CC: Soma overdose HPI: Mr. Benjamin is 66-year-old male with chronic depression and ambulatory dysfunction. He's had a number of falls recently. He describes taking multiple doses of Soma over a 6 hour period yesterday to "get high". He denies intent to harm himself but acknowledges that he doesn' t feel that life is worth living. He indicates he simply got carried away and took too many pills with estimated ingestion of Soma at about 60 pills. Meds are generally locked with his mother setting up a days worth of medications at a time but the patient broke into the locked box to access additional doses of Soma. Patient reports becoming very drowsy as a result and describes himself as "loaded" with difficulty ambulating and having multiple falls last night. He denies nausea, vomiting, or incontinence but acknowledges that memory of events of last night or unclear. His mother apparently tried to contact him and he indicated that he needed help and she subsequently arrived and coordinate transportation to the emergency room. He was admitted for further management due to Soma overdose. Patient denies ingestion of any other medications or alcohol. Hospital Course Soma overdose Depression/questionable bipolar affective disorder Hypertension Chronic back pain Irritable bowel syndrome Ambulatory dysfunction with falls Hypokalemia-present on admission 06/01/16 Admitted with Soma overdose with intent of getting high; patient denies suicidal intent. Psychiatric consultation requested, discussed with Dr. Saunders and Shawn. Resume Seroquel at 150 mg at bedtime, SSRI on hold pending further recommendations. Significant depressive symptoms present. PT consultation for falls. Resume lisinopril/HCTZ for blood pressure and replace potassium. Continue close observation in ICU. May require inpatient psychiatric stay for stabilization. Observation status. 06/02/16 Nursing reports increased anxiety and blood pressure this morning. Patient complains of headache and feels like he is developing a panic attack with increasing dyspnea and palpitations although did not origin that when he looks at the heart monitor his heart rate is normal. He generally uses ibuprofen for his headache and Tylenol has not helped overnight. He feels steady on his feet but has declined ambulating in the halls. He reports anxiety is a chronic problem and agrees to inpatient psychiatric care with the goal of stabilizing depression and anxiety. Patient continued to deny suicidal intent with medication ingestion but does not feel life is worth living. On examination the patient is alert and in no acute distress although blood pressures are moderately elevated with systolics of 160-180 overnight and this morning. Respirations are nonlabored and cardiac rhythm regular. Patient is moving all extremities well and sensation is intact 4 extremities. Patient describes using Klonopin in the past but having no current prescription and has been using alprazolam (which he hints may be prescribed for his mother rather than for him) . Single dose of alprazolam being given now and clonidine resumed for hypertension. Based on patient described outpatient blood pressures, suspect blood pressure control chronically inadequate and will increase clonidine to twice a day from daily at bedtime. [facility]charge [facility] today. Discussed with social work. >30 minutes spent on patient care and discharge care coordination today on the date of discharge. -- Problems: (1) Drug overdose, intentional Status: Acute Code Status Full Code Home Meds Active Scripts Quetiapine Fumarate (Quetiapine Fumarate) 100 Mg Tablet, 150 MG PO HS for 7 Days , #11 TAB Prov:MARGO HUSSEIN MD 06/02/16 Ibuprofen (Ibuprofen) 800 Mg Tablet, 800 MG PO TID Y for HEADACHE for 14 Days, # 42 TAB Prov:MARGO HUSSEIN MD 06/02/16 Acetaminophen (Tylenol Extra Strength) 500 Mg Tablet, 1000 MG PO Q6H Y for PAIN for 14 Days, #112 TAB Prov:MARGO HUSSEIN MD 06/02/16 Clonidine HCl (Clonidine HCl) 0.1 Mg Tablet, 0.1 MG PO BID, #60 Prov:MARGO HUSSEIN MD 06/02/16 Reported Medications Omeprazole (Omeprazole) 20 Mg Capsule.dr, 20 MG PO HS 06/01/16 Gabapentin (Gabapentin) 300 Mg Capsule, 300 MG PO TID 06/01/16 Lisinopril/Hydrochlorothiazide (Lisinopril-Hctz 20-25 mg Tab) 1 Each Tablet, 1 TAB PO DAILY 06/01/16 Aspirin *EC* (Aspirin EC) 81 Mg Tablet.dr, 81 MG PO HS 04/15/16 Loperamide HCl (Anti-Diarrheal) 2 Mg Tablet, 2 MG PO BID 04/15/16 Multivitamins (Multivitamin) 1 Tab Tablet, 1 TAB PO DAILY, TAB 03/09/13 Discontinued Reported Medications Paroxetine HCl (Paroxetine HCl) 10 Mg Tablet, 10 MG PO DAILY TAKE WITH 40 MG TO EQUAL 50 MG DAILY 06/01/16 Alprazolam (Alprazolam) 0.5 Mg Tablet, 0.5 MG PO TID 06/01/16 Carisoprodol (Soma) 350 Mg Tablet, 350 MG PO QID 06/01/16 Quetiapine Fumarate (Seroquel) 300 Mg Tablet, 300 MG PO HS, TAB 03/09/13 Albuterol Sulfate (Proair Hfa) 8.5 Gm Aerosol, 1 PUFF INH PRN 12/22/12 Paroxetine Hcl (Paroxetine Hcl) 40 Mg Tablet, 40 MG PO HS TAKE WITH 10 MG TO EQUAL 50 MG DAILY 12/22/12 Carisoprodol (Soma) 350 Mg Tablet, 350 MG PO QID 12/22/12 Face to Face Encounter I met with patient on the day of dismissal and discussed follow up appointments , medications, and safety plan. Discharge Disposition [facility] Copies To 1: TIFFANY MAYNARD MD Copies To 2: MAYELIN SAUNDERS MD, ROBERTA L MD Jun 02, 2016 11:42 Procedures Procedure Status Date Provider(s) Intmd rpr face/mm 12.6-20 cm Completed 04/15/[address] head/brain w/o dye Completed 04/15/16 Ct maxillofacial w/o dye Completed 04/15/16 Comprehen metabolic panel Completed 04/15/16 Drug screen quantalcohols Completed 04/15/16 Assay of lipase Completed 04/15/16 Assay of prolactin Completed 04/15/16 Assay of troponin quant Completed 04/15/16 Complete cbc w/auto diff wbc Completed 04/15/16 Electrocardiogram tracing Completed 04/15/16 Ther/proph/diag iv inf init Completed 04/15/16 Emergency dept visit Completed 04/15/16 469187"INJECTION, THIAMINE HCL, 100 MG" Completed 04/15/16 [id number]"INFUSION, NORMAL SALINE SOLUTION , 1000 CC" Completed 04/15/16 Routine venipuncture Completed 04/29/16 Comprehen metabolic panel Completed 04/29/16 Drug test prsmv chem anlyzr Completed 04/29/16 Drug test prsmv chem anlyzr Completed 04/29/16 Complete cbc w/auto diff wbc Completed 04/29/16 Encounters Encounter Location Arrival/Admit Date Discharge/Depart Date Attending Provider Discharged Inpatient (obs) [facility] 05/31/16 11:41pm 06/02/16 9 :20pm MARGO HUSSEIN MD Registered Clinic [facility] 04/29/16 5:00pm TIFFANY MAYNARD MD Departed Emergency Room [facility] 04/15/16 10:08am 04/15/16 4: 13pm BOBBY PORTER MD
[2016-06-02] MEDS ORDERED: IBUPROFEN 800 MG TABLET PO PRN (22:30)
[2016-06-02] MEDS ORDERED: PRN ORDERS MC (22:30)
[2016-06-02] MEDS ORDERED: HALOPERIDOL 0.5 MG TABLET PO PRN (22:30)
[2016-06-02] MEDS ORDERED: HALOPERIDOL 5 MG/ML INJECTION IM PRN (22:30)
[2016-06-02] MEDS ORDERED: LORAZEPAM 2 MG/ML INJECTION IM PRN (22:30)
[2016-06-02 23:18] VITALS: RESP 16
[2016-06-02 23:26] VITALS: Ht 182.9 cm; Wt 99.3 kg
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
--- NOTE | 2016-06-03 02:05 | NUR ---
Bed time Pt went to lay down in bed at 0145. No sleep at this time. Currently awake. Will continue to monitor
--- NOTE | 2016-06-03 02:06 | NUR ---
Chart Check 24 hour chart check completed
[2016-06-03] MEDS: ACETAMINOPHEN 500 MG TABLET PO PRN ×2 (03:58→12:20)
--- NOTE | 2016-06-03 04:15 | NUR ---
Smoking assessment Pt states he smokes 1/2 pack/day and has smoked all his life. States he does not have urge to smoke while in hospital and refuses a nicotine patch at this time
--- NOTE | 2016-06-03 06:50 | NUR ---
Summary Pt has slept from 0145 to 0645 this morning. Pt alert x 4. Up SBA to FWW. Pt has not displayed any agitation or aggressive behaviors this shift. Pt was given PRN Tylenol 1000 mg at 0400 due to c/o severe headache. Pt went back to sleep after receiving the Tylenol. No behavioral PRNs given. Pt is continent and makes needs known. Pleasant and cooperative. Currently in BR. Will continue to monitor
[2016-06-03 08:05] VITALS: BP 163/104; PULSE 61; RESP 20; TEMP 98; O2SAT 96
[2016-06-03] MEDS: CLONIDINE 0.1 MG TABLET PO SCH ×2 (08:12→20:33)
[2016-06-03] MEDS: LISINOPRIL/HCTZ 20mg/25mg TABLET PO SCH (08:12)
[2016-06-03] MEDS: GABAPENTIN 300 MG CAPSULE PO SCH ×3 (08:12→20:33)
[2016-06-03] MEDS: MULTIVITAMIN PLAIN TABLET PO SCH (08:18)
[2016-06-03] MEDS: LOPERAMIDE 2 MG CAPSULE PO SCH ×2 (08:19→20:36)
[2016-06-03 14:38] VITALS: PULSE 61; RESP 16; O2SAT 96
[2016-06-03] MEDS ORDERED: POTASSIUM CHLORIDE 20 MEQ TABLET PO ONE (15:15)
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
[2016-06-03 16:00] VITALS: BP 146/86; PULSE 68; RESP 18; TEMP 97.8; O2SAT 97
--- NOTE | 2016-06-03 17:04 | NUR ---
BULK MAIL CLERK--KARLI/SUBSTANCE ABUSE COUNSELING LSW met with pt. to assess how transition from [facility] to [facility] went. Pt. was sitting in day room in recliner (where he has spent most of his day). He was alert, Ox4, appeared calm with euthymic mood. Pt. reported that the unit was not quite what he had expected and he was struggling to manage his anxiety. This SW commented that his body does not reflect the intensity of anxiety that he identifies. He said he is able to "fool" people--that way they never know how really bad it is on the inside. He described what he feels inside as being totally opposite of what people see on the outside. This SW asked patient what strategies he had tried to help manage his anxiety and he laughed when this SW suggested the use of controlled breathing exercises. Pt. was advised that because of the amount of recent alcohol and other medication abuse he has reported, his behaviors place him at significant risk of having very serious substance abuse issues that have potentially life-threatening consequences, particularly because of his hx. of dx. of cirrhosis. Pt. admits he has a problem with abusing alcohol and drugs but he is not interested in any inpatient substance abuse treatment option. He has been in inpatient tx. programs before. He continues to see a substance abuse counselor, Catherine Patel, at [facility]. He says he has seen her every several weeks for years and he is willing to agree to see her on a weekly basis for substance abuse counseling when he is discharged. Pt. did sign KARLI for Shelley Shoemaker APRN, at [facility] and for mental health records at .
[2016-06-03] MEDS: LORAZEPAM 0.5 MG TABLET PO PRN ×2 (17:05→23:09)
--- NOTE | 2016-06-03 17:05 | NUR ---
PRN While speaking with pt, he stated that he was very anxious. stated that it felt like he had a vibrator inside of his body. requested ativan. 0.5mg given at this time per his request.
--- NOTE | 2016-06-03 17:48 | NUR ---
summary pt is alert and oriented. able to make needs known. is pleasant and cooperative. pt was asked if he thought he was depressed, pt stated "no, I'm more anxious than anything." pt denies any morbid thoughts or S/I. pt woke at 0700 slept approx 5 hrs.pt is compliant with medications. has fair appetite. visits well with staff and other pt's.
[2016-06-03 20:09] VITALS: BP 157/96; PULSE 62; RESP 16; TEMP 98.3; O2SAT 97
[2016-06-03] MEDS: ASPIRIN *EC* 81mg TABLET PO SCH (20:33)
[2016-06-03] MEDS: OMEPRAZOLE 20 MG CAPSULE PO SCH (20:33)
[2016-06-03] MEDS: QUETIAPINE 100 MG TABLET PO SCH (20:33)
[2016-06-03 22:23] VITALS: PULSE 62; RESP 16
--- NOTE | 2016-06-03 23:15 | NUR ---
PRN Pt requested to have Ativan at 2300, stating he wanted to be able to sleep tonight and was feeling anxious, with a shaky feeling inside. PRN Ativan 0.5 mg PO given at 2309. Will continue to monitor
--- NOTE | 2016-06-04 01:11 | NUR ---
Chart Check 24 hour chart check completed
--- NOTE | 2016-06-04 01:17 | NUR ---
Mid shift status Pt was sitting in day room watching tv at beginning of shift. Pt alert x 4. Up SBA, and has ambulated on own today without walker. Pt has steady gait. Pleasant and cooperative with assessment. Pt got 26 on his SLUMS and 6 on the alcohol audit this shift. Pt compliant with all HS meds. Pt has not displayed any aggressive behavior. No agitation or behaviors noted. Pt asked for Ativan at 2300, stating he would like something to help him sleep as he feels shaky inside and wanted to be able to get to sleep tonight. PRN Ativan 0.5 mg given at 2309. Pt went to bed at 0115 and is currently awake in his room at this time. Pt has been pleasant with everyone on the unit. Denies SI or morbid thoughts. Will continue to monitor
--- NOTE | 2016-06-04 01:32 | NUR ---
Bed time Pt went in to bed at 0115 and is currently awake at this time. No sleep time during day. Will continue to monitor Addendum: 06/04/16 at 0536 by HARLAN CALLEJAS RN Pt fell asleep at 0145 and is currently sleeping. Will continue to monitor
--- NOTE | 2016-06-04 05:36 | NUR ---
Summary Pt has been sleeping since 144. Pt alert x 4. Up SBA and steady gait. Pleasant and cooperative. No display of aggressive behavior or agitation. Pt c/o some anxiety and wanting to be able to sleep so he was given PRN Ativan 0.5 mg at 2309 per pt request. Compliant with all meds. Pt has been in good mood, denying depression, SI or morbid thoughts. Visited with staff and other male patients in day room. Currently sleeping. Bed rails up x 2 and alarm on. Will continue to monitor
[2016-06-04] MEDS: LISINOPRIL/HCTZ 20mg/25mg TABLET PO SCH (07:43)
[2016-06-04] MEDS: POTASSIUM CHLORIDE 20 MEQ TABLET PO SCH (07:43)
[2016-06-04] MEDS: GABAPENTIN 300 MG CAPSULE PO SCH ×3 (07:43→20:49)
[2016-06-04] MEDS: MULTIVITAMIN PLAIN TABLET PO SCH (07:44)
[2016-06-04] MEDS: CLONIDINE 0.1 MG TABLET PO SCH ×2 (07:44→20:47)
[2016-06-04] MEDS: LOPERAMIDE 2 MG CAPSULE PO SCH ×2 (07:44→20:56)
[2016-06-04 08:20] VITALS: BP 146/100; PULSE 68; RESP 16; TEMP 97.2; O2SAT 96
--- NOTE | 2016-06-04 08:50 | NUR ---
Vaccine Assessment Call Called the patients PCP and they had no Vaccine information, called the facility the patient previously stayed at and left a message for the D.O.N. ( [facility] [phone] )
--- NOTE | 2016-06-04 09:00 | NUR ---
SLEEP 5.50 Hours Pt went to bed at 0115 this morning and awoke at 0800. Pt slept a total of 5.5 hours as documented on the 15 minute observation forms.
--- NOTE | 2016-06-04 11:42 | GENHPPDOC ---
[facility] 06/03/16 Start Time: 10:20 Stop Time: 11:00 >50% of this visit spent in counseling/coordination care. Chief Complaint: Depression, anxiety s/p intentional overdose of Soma History of Present Illness Patient is a 66-year-old male previously seen on the consult service s /p intentional overdose by Soma. Patient reportedly made comments to his mother about it being a suicide attempt and then later denied it. It is estimated he took over 64 pills in 24 hours. Patient's mother strongly felt that patient is a danger to self. Patient was then transferred to [facility] voluntarily for inpatient psych stabilization. Past medical records list bipolar disorder though patient denies past symptoms consistent with cedrick. He feels his anxiety is his primary issue but does not appear anxious during interview. He asks about multiple controlled substances - Xanax, Ativan - and says this is why he overused Soma. Patient has had multiple past psych hospitalizations including [facility] and [facility] though he was not straightforward about this during initial interview. He states he has to take Seroquel for sleep but is on quite a large dose. Will request records from [facility] as well as o/p provider Mayelin Shoemaker with [facility]. Depression: sad, hopeless, decreased energy, change in appetite, social withdrawl, sleep disturbance, morbid thinking Anxiety: worries Past Medical History Past Medical History Soma abuse HTN Bipolar Disorder Chronic Back Pain Current Medications Home Meds Active Scripts Quetiapine Fumarate (Quetiapine Fumarate) 100 Mg Tablet, 150 MG PO HS for 7 Days , #11 TAB Prov:LEXI MONTES MD 06/02/16 Ibuprofen (Ibuprofen) 800 Mg Tablet, 800 MG PO TID Y for HEADACHE for 14 Days, # 42 TAB Prov:LEXI MONTES MD 06/02/16 Acetaminophen (Tylenol Extra Strength) 500 Mg Tablet, 1000 MG PO Q6H Y for PAIN for 14 Days, #112 TAB Prov:LEXI MONTES MD 06/02/16 Clonidine HCl (Clonidine HCl) 0.1 Mg Tablet, 0.1 MG PO BID, #60 Prov:LEXI MONTES MD 06/02/16 Reported Medications Omeprazole (Omeprazole) 20 Mg Capsule.dr, 20 MG PO HS 06/01/16 Gabapentin (Gabapentin) 300 Mg Capsule, 300 MG PO TID 06/01/16 Lisinopril/Hydrochlorothiazide (Lisinopril-Hctz 20-25 mg Tab) 1 Each Tablet, 1 TAB PO DAILY 06/01/16 Aspirin *EC* (Aspirin EC) 81 Mg Tablet.dr, 81 MG PO HS 04/15/16 Loperamide HCl (Anti-Diarrheal) 2 Mg Tablet, 2 MG PO BID 04/15/16 Multivitamins (Multivitamin) 1 Tab Tablet, 1 TAB PO DAILY, TAB 03/09/13 Discontinued Reported Medications Paroxetine HCl (Paroxetine HCl) 10 Mg Tablet, 10 MG PO DAILY TAKE WITH 40 MG TO EQUAL 50 MG DAILY 06/01/16 Alprazolam (Alprazolam) 0.5 Mg Tablet, 0.5 MG PO TID 06/01/16 Carisoprodol (Soma) 350 Mg Tablet, 350 MG PO QID 06/01/16 Quetiapine Fumarate (Seroquel) 300 Mg Tablet, 300 MG PO HS, TAB 03/09/13 Albuterol Sulfate (Proair Hfa) 8.5 Gm Aerosol, 1 PUFF INH PRN 12/22/12 Paroxetine Hcl (Paroxetine Hcl) 40 Mg Tablet, 40 MG PO HS TAKE WITH 10 MG TO EQUAL 50 MG DAILY 12/22/12 Carisoprodol (Soma) 350 Mg Tablet, 350 MG PO QID 12/22/12 Allergies: Coded Allergies: No Known Drug Allergies (Verified Allergy, Unknown, 05/31/16) Family History Family History: mother with a-fib Brother: alcoholism Vaccines No UNKNOWN Social History Does patient use chewing tobac: No # of Packs/Tins per Day: 1 # of Years: 40 Second Hand Exposure: No Substance Use Type: sedatives, opiates, prescription drug Substance last used: prior to arrival Alcohol Intake: daily, 0-2 drinks per day, other Last Drink: hours (ago) Marital Status: Single Housing: house Household Members: none Current Occupational Status: disabled Advance Directives: No DPOA for Healthcare Only Family support, verbally communicative, lives independently Review of Systems Constitutional: REPORTS: appetite decrease, difficulty falling asleep, insomnia GI Lower Abdomen: constipation, diarrhea Psychiatric Psychiatric: anxiety, depression, memory impairment, nervousness, suicidal ideation/attempt, DENIES: hallucinations All Other Systems All Other Systems: Reviewed (remainder of 10-point ROS Neg.) [facility] Exam Vitals Vital Signs Date Time Temp Pulse Resp B/P Pulse Ox O2 Delivery O2 Flow Rate FiO2 06/03/16 08:05 98.0 61 20 163/104 96 Room Air Physical examination performed by the hospitalist. Height (Feet): 6 Height (Inches): 0.00 Mental Status Exam Muscle Strength/Tone: Normal Dressing: Casual Grooming: Fair Attitude: Manipulative Motor Activity: Normal Eye Contact: Good Speech: Normal Volume: Normal Rhythm: Appropriate Rhythm Sensory: Alert Orientation: Oriented X4 Mood: Anxious Affect: Restricted Rate of Thoughts: Appropriate Rate Thought Organization: Organized Associations: Intact Abstract Reasoning: Intact, able to abstract Thought Content: Ruminations, Helplessness Perception/Psychotic: Perception Normal Attention Span/Concentration: Normal Language: Naming Intact Fund of Knowledge: Jennifer aware current events Memory: Grossly Intact (reports subjective difficulties) Suicidal Ideation: Other (s/p suicide attempt by overdose ) Homicidal Ideation: Denies Insight: Limited Judgment: Limited Impulse Control: Fair Assessment and Plan (1) Suicide attempt by substance overdose (2) Mood disorder Assessment: 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 Patient is not to have further controlled substances. Will review records prior to making further med changes. Evaluate and stabilize, maintain safety precautions and monitor patient's mood/ behavior on the unit. Will discuss safe discharge plan with patient and mother. (3) Sedative, hypnotic or anxiolytic use, unspecified with other sedative, hypnotic or anxiolytic-induced disorder (4) Hypokalemia (5) IBS (irritable bowel syndrome) (6) Chronic back pain (7) HTN (hypertension) MAYELIN TRIVEDI MD Jun 03, 2016 08:31
[2016-06-04] MEDS: LORAZEPAM 0.5 MG TABLET PO PRN ×2 (12:40→20:51)
[2016-06-04] MEDS: ACETAMINOPHEN 500 MG TABLET PO PRN ×2 (12:40→20:52)
--- NOTE | 2016-06-04 15:56 | NUR ---
BAY STOCKER--PSH/ADVANCE DIRECTIVE/TX PL[facility] prior to admission while pt. was still in CC[facility] and much of information for psychosocial history (PSH) was obtained at that time. Pt's mother, Krystal Flores, was present for that interview and provided additional information. Met with pt. again 1:1 today to complete PSH. Pt. was alert, Ox4, calm with pleasant mood. He reports he is feeling better and he is thinking about what he needs to do to help himself once he leaves [facility]. Pt. reports he was born in [place]. 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 He is and has one son with whom he is estranged. Pt. reports that he was a "hippie" in the 70's and 80's. He admits to heavy drug (LSD, peyote, marijuana, crack, speed, prescription medications, etc.) and alcohol use, including IV use. He states he has used needles to shoot up wide variety of drugs, including wine and whiskey. He was successfully treated for HepC but admits he continues to have stage 3 liver disease because of cirrhosis. Pt. has lost track of the number of DUIs he has had but thinks it could be as many as 11. He has been in inpatient substance abuse treatment in the past and was in [facility] for 30 days in 1989 for treatment of Depression and Anxiety. He was placed on "benzos" at that time. Pt. served 3 1/2 years at [facility] for DUIs. He was at [facility] and had to return home because he did not qualify for that level of care. While there he began seeing hSelley Shoemaker APRN at [facility]. Pt. states he has been seeing Catherine Patel, a substance abuse counselor at [facility] in [place] for many years. He had only been seeing her every few months and is willing to increase that time to weekly in order to get outpatient substance abuse treatment. Pt. has a strong latter-day luther that prevents him from considering suicide. He states he feels it would condemn him to hell and he denies any prior attempts. He does admit to feeling hopeless and not caring whether or not he lives or dies. Since being admitted, he realizes he needs to get re-engaged in the community and thinks he might like to consider going to hinduism as a means to meet people. He did agree to have this SW put in request so he can meet with hospital senior dynamics crm developer. Pt. reports that his brother is also a severe alcoholic. Pt's mother had also identified many of her family members suffered from anxiety and had children who had addiction issues. Pt. reports his only support system is his mother and step-father. Since they are getting older and slowing down, he is doing less and less himself. He enjoys learning and would like to consider finding ways to audit some college classes or adult learning classes. He was also encouraged to think about any volunteer opportunities. Pt. confirmed that he wants to be a full code at this point. He wants to read the DP- paperwork and will consider signing it for medical reasons only. Pt's mother has been hired to be his home health aide through a home health company. Pt's discharge plan is to return home when stable. [facility] reviewed proposed [place] plan with pt. He wanted to make a note regarding the medical diagnosis of #2 (suicide attempt). He had this SW write, "Pt. denies that he was suicidal--says it was accidental." He added, "I don't really care--but I won't intentionally take my own life." Pt. did sign the [place] plan after changes were made. Addendum: 06/04/16 at 1624 by ROSSANA SHAH Amended: Links added.
[2016-06-04 17:08] VITALS: BP 157/105; PULSE 74; RESP 18; TEMP 97.8; O2SAT 98
--- NOTE | 2016-06-04 17:25 | PNPDOC ---
Subjective Date DATE: 06/04/16 TIME: 17:21 Subjective Mr. Castillo was briefly reevaluated due to concerns about vital signs. He reports he had no difficulty with slowing of his heart rate overnight nor did he have dizziness. He feels significantly better today and denies dyspnea or lightheadedness Objective Vital Signs Vital signs Vital Signs Date Time Temp Pulse Resp B/P Pulse Ox O2 Delivery O2 Flow Rate FiO2 06/04/16 17:08 97.8 74 18 157/105 98 Room Air NAD, calm, fluent speech Pulse strong and regular Respirations nonlabored Height (Feet): 6 Height (Inches): 0.00 Weight (Kilograms): 99.310 Assessment & Plan Problems: (1) Sedative, hypnotic or anxiolytic use, unspecified with other sedative, hypnotic or anxiolytic-induced disorder Onset Date: 06/01/2016 Status: Acute Assessment & Plan: approximately 60 pills of Soma (2) Suicide attempt by substance overdose Status: Acute (3) Hypokalemia Status: Acute (4) IBS (irritable bowel syndrome) Status: Chronic (5) Chronic back pain Status: Chronic (6) Mood disorder Status: Chronic (7) HTN (hypertension) Status: Chronic Assessment Heart rate continues to improve, patient no longer expresses concerns about bradycardia. Blood pressure have her remains elevated-Will switch from lisinopril/HCTZ to 20/12.5-2 tablets daily Reassess electrolytes on Tuesday to determine if there is ongoing need for potassium supplementation. Code Status Full Code Hospital Course Summary Disclaimer The hospital course summary below is not to be considered part of the above Progress Note. Hospital Course Summary 07/03/16 [facility]. Hypokalemia: We'll give K-Dur 20 medical equivalents 1, and then start daily dosing. Will recheck BMP and magnesium level on 06/07/16. Hypertension: Continue with lisinopril/hydrochlorothiazide 20/25 And Clonidine 0.1 mg twice a day. He is still running 160/100. May need to increase dosing. Patient reports bradycardia in the critical care unit, currently heart rate is stable in the 90s. HR reviewed - the lowest documented HR was 53 on 06/02/16. Mostly, HR was upper 50s-70. Nausea: possible benzo withdrawal. Clonidine may be of benefit to alleviate symptoms. Ativan available PRN. Anxiety and mood disorder, recent soma overdose: Per attending. He is on Seroquel 150 mg HS. LEXI MONTES MD Jun 04, 2016 17:25
--- NOTE | 2016-06-04 18:23 | NUR ---
Summary Pt was cooperative with assessment, cares and medications. Pt has been happy in affect and stated that he felt much better after a shower and a shave. Pt has spent most of the shift in the day room conversing with staff and other patients. Pt has had no complaints of pain or discomfort. Pt takes medications as prescribed and has received no PRN medications today. Pt is able to make needs known and is currently in the day room talking with his mother.
[2016-06-04 20:38] VITALS: BP 152/94; PULSE 71; RESP 16; TEMP 97.6
[2016-06-04 20:47] VITALS: PULSE 71; RESP 16
[2016-06-04] MEDS: QUETIAPINE 100 MG TABLET PO SCH (20:50)
[2016-06-04] MEDS: ASPIRIN *EC* 81mg TABLET PO SCH (20:50)
[2016-06-04] MEDS: OMEPRAZOLE 20 MG CAPSULE PO SCH (20:54)
--- NOTE | 2016-06-05 00:38 | NUR ---
Chart Check 24 hour chart check completed
--- NOTE | 2016-06-05 00:45 | NUR ---
Bedtime / Status Pt took meds whole at HS without difficulty. Pt is A/O x 3. Pt dressing changed on right forearm due to bandage coming off, open gash measured 1.75cm X 0.6cm, xerofoam and mepilex applied. Area had minimal serosanguineous drainage. Area not proximated. Pt in day room and watching TV most of the evening into night time. Pt went to bed at this time: 0045. Will continue to monitor.
--- NOTE | 2016-06-05 06:32 | NUR ---
Summary / requested ativan PRN Pt is A/O x 3 and Pt cooperative with staff and able to caring on appropriate conversations. Spoke with Pt about why he was here and Pt did admit "I took too many medications for my back pain." Encouraged Pt to talk about feelings. Active listening done. Pt denies suicide ideation and plan. Pt denies homicidal plan. Pt ambulates with steady gait. Pt went to bed late, was up watching television and sitting in his recliner until 44 and then has been in bed and up to bathroom x 1. Pt c/o headache at beginning of shift, Pt given tylenol PRN. Pt given HS meds and Pt requested ativan PRN stated, "I'm so anxious and it will help me get to sleep and relax my neck muscles up in here, along with the tylenol." Pt then later stated pain medicaitons effective, stated pain was 7 and went down to a 2. Will continue to monitor. Pt flat affect, but smiles easily.
[2016-06-05 08:14] VITALS: BP 150/97; PULSE 92; RESP 16; TEMP 97.2; O2SAT 95
[2016-06-05] MEDS: LOPERAMIDE 2 MG CAPSULE PO SCH ×2 (08:16→20:05)
[2016-06-05] MEDS: MULTIVITAMIN PLAIN TABLET PO SCH (08:16)
[2016-06-05] MEDS: POTASSIUM CHLORIDE 20 MEQ TABLET PO SCH (08:16)
[2016-06-05] MEDS: LISINOPRIL/HCTZ 20mg/12.5mg TABLET PO SCH (08:16)
[2016-06-05] MEDS: GABAPENTIN 300 MG CAPSULE PO SCH ×3 (08:17→20:05)
[2016-06-05] MEDS: CLONIDINE 0.1 MG TABLET PO SCH ×2 (08:17→20:05)
[2016-06-05 08:36] VITALS: PULSE 71
--- NOTE | 2016-06-05 13:17 | NUR ---
MID SHIFT NOTE PT IS A&O X3. PT IS ABLE TO MAKE NEEDS KNOWN TO STAFF. PT IS UP AD YEFRI AND IS CONTINENT OF BOTH BOWEL AND BLADDER. PT TAKES MEDS AND WANTS TO KNOW EXACTLY WHAT HE IS TAKING. PT IS COMPLIANT WITH CARES AND IS V. SOCIAL WITH STAFF AND OTHER CLIENTS. PT HAS NOT SLEPT FOR THIS SHIFT AND IS EATING WELL. PT REQUESTS TO ORDER OWN MEALS AND IS DOING WELL WITH THIS. PT HAS HAD NO BEHAVIORS AND HAS HAD NO PRNS FOR THIS HE DID HOWEVER C/O A DUCKWORTH AND WAS GIVEN EXTRA STRENGTH TYLENOL ON REASSESSMENT HE STATES THE PAIN IS GONE. PT HAS MEDS NO COMMENT OF SELF HARM AND HE WAS SCARED WHEN HE TOOK THE PILLS AND KNOWS HE DOESN'T WANT TO DO THAT AGAIN.
[2016-06-05] MEDS: ACETAMINOPHEN 500 MG TABLET PO PRN (14:33)
[2016-06-05] MEDS: AMLODIPINE 5 MG TABLET PO SCH (15:15)
--- NOTE | 2016-06-05 15:28 | PNPDOC ---
Subjective Date DATE: 06/05/16 TIME: 15:17 Subjective Dano is seen today in follow up. I was asked to assess his right forearm. He has a 2cm laceration that does not appear inflamed. He does have some surrounding tissue edema that extends distally down ulnar area. Not overtly red or warm. No drainage noted. Pt. states that he cut his arm on a wooden railing at [place] where he lives. No splinters on the railing. States his last tD was a year ago. Contradicts me frequently re: wound assessment during the visit, but he is not rude or agitated. Chart is reviewed at length. Objective Vital Signs Vital signs Vital Signs Date Time Temp Pulse Resp B/P Pulse Ox O2 Delivery O2 Flow Rate FiO2 06/05/16 08:36 71 06/05/16 08:14 97.2 16 150/97 95 Room Air Height (Feet): 6 Height (Inches): 0.00 Weight (Kilograms): 99.310 General General Appearance: Alert, Cooperative, No Acute Distress Eyes (Brief) Eyes: FOUND: EOMI, PERRL, NOT FOUND: scleral icterus Neck (Brief) Neck: FOUND: midline, NOT FOUND: JVD, nuchal rigidity, spasm Respiratory (Brief) Respiratory: FOUND: clear all barreto, equal bilaterally, symmetrical, NOT FOUND : rales, wheezes Cardiovascular (Brief) Cardiac: FOUND: regular rate, regular rhythm, NOT FOUND: murmur, pedal edema Abdomen (Brief) Abdominal: FOUND: BS normo active x4, soft, NOT FOUND: distended, tender Extremities (Brief) Extremity : Side: Right Extremity: forearm Extremity Finding: FOUND: laceration (Proximal ulnar area. 2cm with serous exudate. See HPI. Some swelling of muscle area. ) Musculoskeletal (Brief) Musculoskeletal: NOT FOUND: deformity, loss of motion Comments Elbow joint is normal. No redness or warmth. No limited ROM. Integumentary (Brief) Integumentary: FOUND: dry, warm Psychiatric (Brief) Psychiatric: FOUND: alert, attentive, oriented Assessment & Plan Problems: (1) Sedative, hypnotic or anxiolytic use, unspecified with other sedative, hypnotic or anxiolytic-induced disorder Onset Date: 06/01/2016 Status: Acute Assessment & Plan: approximately 60 pills of Soma (2) Suicide attempt by substance overdose Status: Acute (3) Hypokalemia Status: Acute (4) IBS (irritable bowel syndrome) Status: Chronic (5) Chronic back pain Status: Chronic (6) Mood disorder Status: Chronic (7) HTN (hypertension) Status: Chronic (8) Arm laceration Status: Acute Qualifiers: Laterality: right Assessment 06/05/16- Laceration appears fairly uncomplicated, but will treat with some limited abx due to palpable muscle swelling. Augmentin to cover Gm + and Anaerobes, especially given proximity to elbow joint. Will treat for 5 days- extend as indicated. Limit medications for pain. Long hx of drug abuse, Soma OD. Pt. reports he lives at [place]- if he lives in [facility], would have nurses keep control of medications if possible. He is receiving K replacement- repeat labs Tuesday AM. BP remains elevated. Will add Norvasc. He remains on Lisinopril-HCTZ. May be able to DC clonidine prior to discharge. Continue supportive care. Code Status Full Code Hospital Course Summary Disclaimer The hospital course summary below is not to be considered part of the above Progress Note. Hospital Course Summary 07/03/16 Agree with admission to [facility]. Hypokalemia: We'll give K-Dur 20 medical equivalents 1, and then start daily dosing. Will recheck BMP and magnesium level on 06/07/16. Hypertension: Continue with lisinopril/hydrochlorothiazide 20/25 And Clonidine 0.1 mg twice a day. He is still running 160/100. May need to increase dosing. Patient reports bradycardia in the critical care unit, currently heart rate is stable in the 90s. HR reviewed - the lowest documented HR was 53 on 06/02/16. Mostly, HR was upper 50s-70. Nausea: possible benzo withdrawal. Clonidine may be of benefit to alleviate symptoms. Ativan available PRN. Anxiety and mood disorder, recent soma overdose: Per attending. He is on Seroquel 150 mg HS. 06/05/16- Laceration appears fairly uncomplicated, but will treat with some limited abx due to palpable muscle swelling. Augmentin to cover Gm + and Anaerobes, especially given proximity to elbow joint. Will treat for 5 days- extend as indicated. Limit medications for pain. Long hx of drug abuse, Soma OD. Pt. reports he lives at [place]- if he lives in [place] apartments, would have nurses keep control of medications if possible. He is receiving K replacement- repeat labs Tuesday AM. BP remains elevated. Will add Norvasc. He remains on Lisinopril-HCTZ. May be able to DC clonidine prior to discharge. Continue supportive care. DESEAN WEAVER APRN Jun 05, 2016 15:20
[2016-06-05 16:00] VITALS: BP 117/82; PULSE 72; RESP 16; TEMP 97.7; O2SAT 98
[2016-06-05] MEDS: AMOXICILLIN/CLAVULANATE 875 MG/125 MG TABLET PO SCH (17:10)
--- NOTE | 2016-06-05 17:12 | GENPN ---
[facility] Subjective Date DATE: 06/05/16 TIME: 10:52 Subjective/Severity of Illness Medications Current Medications Medications (Trade) Dose Ordered Sig/Kassandra Start Time Stop Time Status Last Admin Dose Admin Miscellaneous Medication (May use PRN orders) 1 PRN PRN 06/02/16 22:30 Haloperidol (Haldol) 0.5 mg Q6H PRN 06/02/16 22:30 Lorazepam (Ativan) 0.5 mg Q6H PRN 06/02/16 22:30 06/04/16 20:51 0.5 MG Lorazepam (Ativan) 0.5 mg Q6H PRN 06/02/16 22:30 Haloperidol Lactate (Haldol 5 Mg/ml Inj) 0.5 mg Q6H PRN 06/02/16 22:30 Acetaminophen (Tylenol Extra Strength) 1,000 mg Q6H PRN 06/02/16 22:30 06/04/16 20:52 1,000 MG Aspirin (Ecotrin) 81 mg HS 06/03/16 21:00 06/04/16 20:50 81 MG Clonidine HCl (Catapres) 0.1 mg BID 06/03/16 09:00 06/05/16 08:17 0.1 MG Gabapentin (Neurontin) 300 mg TID 06/03/16 09:00 06/05/16 08:17 300 MG Ibuprofen (Motrin) 800 mg TID PRN 06/02/16 22:30 HCTZ/Lisinopril (Prinzide ) 1 tab DAILY 06/03/16 09:00 06/04/16 17:24 DC 06/04/16 07:43 1 TAB Omeprazole (Prilosec) 20 mg HS 06/03/16 21:00 06/04/16 20:54 20 MG Quetiapine Fumarate (Seroquel) 150 mg HS 06/03/16 21:00 06/04/16 20:50 150 MG Loperamide HCl (Imodium) 2 mg BID 06/03/16 09:00 06/05/16 08:16 2 MG Multivitamins Therapeutic (Theragran) 1 tab DAILY 06/03/16 09:00 06/05/16 08:16 1 TAB Potassium Chloride (Kdur) 20 meq WB 06/04/16 08:00 4/29/17 08:16 20 MEQ HCTZ/Lisinopril (Prinzide 20/ 12.5) 2 tab DAILY 06/05/16 09:00 06/05/16 08:16 2 TAB Subjective Patient seen and chart reviewed. Case discussed with treatment team. Patient is in dayroom with peers on approach and seems to enjoy socializing with others though they have dementia. He has taken a shower and appears to have a brighter affect. He also reports that his mood is improved "since he got everything out of his system." He inquires about an antidepressant and says he feels Paxil has been most helpful - we agree to restart it tomorrow morning. He has taken up to 450mg of Seroquel in the past but now says 150mg PO q HS is working well to help him sleep. He denies SI now and says he would like to be more involved with [facility] and treatment. Patient denies any HI, AVH or adverse side effects related to medications. Per staff, patient has been cooperative with no significant behavioral difficulties on the unit. No psychotropic PRNs required in the past 24 hours. Appetite good. VSS. Start Time: 14:40 Stop Time: 15:00 Care >50% of this visit spent in counseling/coordination care. [facility] Exam Vitals Vital Signs Date Time Temp Pulse Resp B/P Pulse Ox O2 Delivery O2 Flow Rate FiO2 06/05/16 08:36 71 06/05/16 08:14 97.2 16 150/97 95 Room Air Physical examination performed by the hospitalist. Height (Feet): 6 Height (Inches): 0.00 Mental Status Exam Muscle Strength/Tone: Normal Dressing: Casual Grooming: Good Attitude: Cooperative Motor Activity: Normal Eye Contact: Good Speech: Normal Volume: Normal Rhythm: Appropriate Rhythm Sensory: Alert Orientation: Oriented X4 Mood: Depressed Affect: Stable Rate of Thoughts: Appropriate Rate Thought Organization: Organized Associations: Intact Abstract Reasoning: Intact, able to abstract Computation: Intact Thought Content: Normal Perception/Psychotic: Perception Normal Attention Span/Concentration: Normal Language: Naming Intact Fund of Knowledge: Appropriate Memory: Grossly Intact Suicidal Ideation: Denies (though s/p suicide attempt) Homicidal Ideation: Denies Insight: Fair Judgment: Fair Impulse Control: Fair Laboratory Tests Test 06/05/16 06:57 Triglycerides Level Pending Cholesterol Level Pending LDL Cholesterol, Calculated Pending VLDL Cholesterol Pending HDL Cholesterol Direct Pending Cholesterol/HDL Ratio Pending Assessment and Plan (1) Suicide attempt by substance overdose (2) Mood disorder Assessment: 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 Patient is not to have further controlled substances. Will review records prior to making further med changes. Evaluate and stabilize, maintain safety precautions and monitor patient's mood/ behavior on the unit. Will discuss safe discharge plan with patient and mother. 06/05/16: Restart Paxil 20mg PO in AM though may increase dose quickly if well- tolerated. Continue Seroquel 150mg PO q HS. Will discuss with o/p providers recommendation for no controlled substances. (3) Sedative, hypnotic or anxiolytic use, unspecified with other sedative, hypnotic or anxiolytic-induced disorder (4) Hypokalemia (5) IBS (irritable bowel syndrome) (6) Chronic back pain (7) HTN (hypertension) MAYELIN TRIVEDI MD Jun 05, 2016 10:52
[2016-06-05] MEDS: OMEPRAZOLE 20 MG CAPSULE PO SCH (20:05)
[2016-06-05] MEDS: QUETIAPINE 100 MG TABLET PO SCH (20:05)
[2016-06-05] MEDS: ASPIRIN *EC* 81mg TABLET PO SCH (20:05)
[2016-06-05 22:37] VITALS: BP 143/90; PULSE 76; RESP 20; TEMP 97; O2SAT 94
--- NOTE | 2016-06-06 01:25 | NUR ---
Status/ Bedtime Pt. is asleep at 0345. Pt. is pleasant and cooperative. Pt. is sitting in the dayroom on approach. Pt was cooperative with assessment and medications. Pt. quietly watched movies or visited with staff. Pt does complain of back pain. Pt takes medications as prescribed and has not received PRN medications today. Pt is able to make needs known and is currently in the day room. Pt. questions his Ativan being dc'd. Pt. states it helps him sleep. Pt. would like to meet with Dr. Saunders when rounding. Pt. Xerofoam and mepilex to right forearm is clean dry and intact.
--- NOTE | 2016-06-06 03:15 | NUR ---
Chart Check 24 hour chart check completed
[2016-06-06 08:00] VITALS: BP 122/89; PULSE 72; PULSE 76; RESP 16; RESP 20; TEMP 97; O2SAT 94
--- NOTE | 2016-06-06 09:11 | NUR ---
Summary Pt. is pleasant and cooperative with meds and cares. Pt. is alert and oriented x3. Pt. asked for prn ativan , medication is dc'd by . Pt. states the ativan helps him sleep. Pt. did go to bed later than normal without ativan. Pt. would like to discuss medication with during rounds.
[2016-06-06] MEDS: AMOXICILLIN/CLAVULANATE 875 MG/125 MG TABLET PO SCH ×2 (09:34→17:05)
[2016-06-06] MEDS: POTASSIUM CHLORIDE 20 MEQ TABLET PO SCH (09:34)
[2016-06-06] MEDS: GABAPENTIN 300 MG CAPSULE PO SCH ×3 (09:35→21:19)
[2016-06-06] MEDS: CLONIDINE 0.1 MG TABLET PO SCH ×2 (09:35→21:19)
[2016-06-06] MEDS: LISINOPRIL/HCTZ 20mg/12.5mg TABLET PO SCH (09:35)
[2016-06-06] MEDS: MULTIVITAMIN PLAIN TABLET PO SCH (09:35)
[2016-06-06] MEDS: LOPERAMIDE 2 MG CAPSULE PO SCH ×2 (09:35→21:00)
[2016-06-06] MEDS: AMLODIPINE 5 MG TABLET PO SCH (09:35)
[2016-06-06] MEDS: PAROXETINE 20 MG TABLET PO SCH (09:35)
--- NOTE | 2016-06-06 15:36 | GENPN ---
[facility] Subjective Date DATE: 06/06/16 TIME: 09:54 Subjective/Severity of Illness Medications Current Medications Medications (Trade) Dose Ordered Sig/Kassandra Start Time Stop Time Status Last Admin Dose Admin Miscellaneous Medication (May use PRN orders) 1 PRN PRN 06/02/16 22:30 Haloperidol (Haldol) 0.5 mg Q6H PRN 06/02/16 22:30 Lorazepam (Ativan) 0.5 mg Q6H PRN 06/02/16 22:30 06/05/16 11:00 DC 06/04/16 20:51 0.5 MG Lorazepam (Ativan) 0.5 mg Q6H PRN 06/02/16 22:30 06/05/16 11:00 DC Haloperidol Lactate (Haldol 5 Mg/ml Inj) 0.5 mg Q6H PRN 06/02/16 22:30 Acetaminophen (Tylenol Extra Strength) 1,000 mg Q6H PRN 06/02/16 22:30 06/05/16 14:33 1,000 MG Aspirin (Ecotrin) 81 mg HS 06/03/16 21:00 06/05/16 20:05 81 MG Clonidine HCl (Catapres) 0.1 mg BID 06/03/16 09:00 06/06/16 09:35 0.1 MG Gabapentin (Neurontin) 300 mg TID 06/03/16 09:00 06/06/16 09:35 300 MG Ibuprofen (Motrin) 800 mg TID PRN 06/02/16 22:30 HCTZ/Lisinopril (Prinzide ) 1 tab DAILY 06/03/16 09:00 06/04/16 17:24 DC 06/04/16 07:43 1 TAB Omeprazole (Prilosec) 20 mg HS 06/03/16 21:00 06/05/16 20:05 20 MG Quetiapine Fumarate (Seroquel) 150 mg HS 06/03/16 21:00 06/05/16 20:05 150 MG Loperamide HCl (Imodium) 2 mg BID 06/03/16 09:00 06/06/16 09:35 2 MG Multivitamins Therapeutic (Theragran) 1 tab DAILY 06/03/16 09:00 06/06/16 09:35 1 TAB Potassium Chloride (Kdur) 20 meq WB 06/04/16 08:00 06/06/16 09:34 20 MEQ HCTZ/Lisinopril (Prinzide 20/ 12.5) 2 tab DAILY 06/05/16 09:00 06/06/16 09:35 2 TAB Paroxetine HCl (Paxil) 20 mg DAILY 06/06/16 09:00 06/06/16 09:35 20 MG Amoxicillin/ Clavulanate Potassium (Augmentin 875/ 125) 875 mg BIDWM 06/05/16 17:30 06/10/16 17:29 06/06/16 09:34 875 MG Amlodipine Besylate (Norvasc) 5 mg DAILY 06/05/16 15:15 06/06/16 09:35 5 MG Subjective Patient seen and chart reviewed. Patient greets me by first name and then tells me that he would like to talk about medications. He states, "They asked if I had any allergies and I said no but I didn't tell them about one allergy I have because I didn't think you'd be dumb enough to use that medication." He then goes on to say that he is allergic to Haldol and doesn't need it because he is not psychotic. I informed him that this is a unit standard PRN medication for agitation, he had not received it and he was already taking an alternate antipsychotic (Seroquel). He was accepting of this. He is in agreement with leaving Paxil at 20mg daily and titrating further on an outpatient basis. He does ask why Ativan was discontinued and I told him that he would not receive Rx for any controlled substances after discharge; he stated that this also made sense to him. In regards to sleep, offered trazodone PRN in addition to Seroquel. He prefers doxepin or amitriptyline. I told him I was not comfortable prescribing these until his depression was better controlled as they can be lethal in overdose and he may discuss this with his outpatient provider. Patient states he stayed up until 3 AM last night but this seems to be primarily because he enjoys socializing with staff and not due to insomnia. He has a brighter affect overall and reports his depression is much better than upon admission to the hospital. He denies SI now and says he would like to be more involved with [facility] and treatment. Patient denies any HI, AVH or adverse side effects related to medications. Per staff, patient has been cooperative with no significant behavioral difficulties on the unit. No psychotropic PRNs required in the past 24 hours. Appetite good. VSS. Start Time: 10:20 Stop Time: 10:40 Care >50% of this visit spent in counseling/coordination care. [facility] Exam Vitals Vital Signs Date Time Temp Pulse Resp B/P Pulse Ox O2 Delivery O2 Flow Rate FiO2 06/06/16 08:00 97.0 76 20 122/89 94 Room Air Physical examination performed by the hospitalist. Height (Feet): 6 Height (Inches): 0.00 Mental Status Exam Muscle Strength/Tone: Normal Dressing: Casual Grooming: Good Attitude: Cooperative, Manipulative Motor Activity: Normal Eye Contact: Good Speech: Normal Volume: Normal Rhythm: Appropriate Rhythm Sensory: Alert Orientation: Oriented X4 Mood: Neutral Affect: Stable Rate of Thoughts: Appropriate Rate Thought Organization: Organized Associations: Intact Abstract Reasoning: Intact, able to abstract Thought Content: Normal Perception/Psychotic: Perception Normal Attention Span/Concentration: Normal Language: Naming Intact Fund of Knowledge: Appropriate Memory: Grossly Intact Suicidal Ideation: Denies Homicidal Ideation: Denies Insight: Fair Judgment: Fair Impulse Control: Fair Assessment and Plan (1) Suicide attempt by substance overdose (2) Mood disorder Assessment: 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 Patient is not to have further controlled substances. Will review records prior to making further med changes. Evaluate and stabilize, maintain safety precautions and monitor patient's mood/ behavior on the unit. Will discuss safe discharge plan with patient and mother. 06/05/16: Restart Paxil 20mg PO in AM though may increase dose quickly if well- tolerated. Continue Seroquel 150mg PO q HS. Will discuss with o/p providers recommendation for no controlled substances. 06/06/16: Continue Paxil 20mg PO daily. Will start trazodone 50-100mg PO q HS PRN insomnia. Discontinued PRN Haldol per patient request and as he has not been agitated requiring PRNs since admission. I have stated to patient that I will not prescribe him a TCA or any controlled substances upon discharge. Plan to finalize discharge arrangements with mother, outpatient provider, increase support with [facility]. (3) Sedative, hypnotic or anxiolytic use, unspecified with other sedative, hypnotic or anxiolytic-induced disorder (4) Hypokalemia (5) IBS (irritable bowel syndrome) (6) Chronic back pain (7) HTN (hypertension) MAYELIN TRIVEDI MD Jun 06, 2016 09:54
[2016-06-06] MEDS ORDERED: TRAZODONE 50 MG TABLET PO PRN (15:45)
[2016-06-06 16:00] VITALS: BP 122/79; PULSE 80; RESP 18; TEMP 97.8; O2SAT 96
--- NOTE | 2016-06-06 17:49 | NUR ---
SHIFT SUMMARY 7A-7P Pt is free of anxiety and depression this shift per his report. No comments were made regarding him wanting to end his life or be done with life. Pt takes medications as prescribed. He visited with staff and patients most of day. He went to bed at 0300 this am and woke up at 0945. He has been up all day. Pt fills out menu for next day meals and tomorrows (06-07-2016) was sent with dinner trays back to cafeteria this shift. Pt is watching a baseball game in day room now and visiting with another pt.
[2016-06-06 20:26] VITALS: BP 149/84; PULSE 80; RESP 18; TEMP 98.2; O2SAT 96
[2016-06-06] MEDS: QUETIAPINE 100 MG TABLET PO SCH (21:19)
[2016-06-06] MEDS: ASPIRIN *EC* 81mg TABLET PO SCH (21:19)
--- NOTE | 2016-06-06 22:50 | NUR ---
status pt alert and oriented x3. pleasant and cooperative. compliant with medication. converses with this nurse a bit about going home once discharged. sitting in day room at present time watching tv.
--- NOTE | 2016-06-07 06:16 | NUR ---
SHIFT SUMMARY PT HAS BEEN ASLEEP FOR THIS SHIFT. PT HAS BEEN UP TO THE BATHROOM ONE TIME WITHOUT ANY BEHAVIORS OR SUICIDAL COMMENTS. PT IS PLEASANT AND COOPERATIVE WITH CARES AT THIS TIME. PT USES CALL LIGHT AND IS ABLE TO MAKE NEEDS KNOWN TO STAFF. WILL CONTINUE TO MONITOR PT TILL END OF SHIFT REPORT.
[2016-06-07 06:33] LABS: BASOPHILS # (AUTO) 0.1 T/MM3 (0-0.2); BASOPHILS % (AUTO) 0.7 % (0-2); EOSINOPHILS # (AUTO) 0.5 T/MM3 (0-0.5); EOSINOPHILS % (AUTO) 6.6 % (0-4); HCT - HEMATOCRIT 42.9 % (41-53); HGB - HEMOGLOBIN 14.3 GM/DL (13.5-17.5); IMMATURE GRANULOCYTE # (AUTO) 0.01 T/MM3 (0.00-0.03); IMMATURE GRANULOCYTE % (AUTO) 0.1 % (0.0-0.5); LYMPHOCYTES # (AUTO) 3.3 T/MM3 (1-4.8); LYMPHOCYTES % (AUTO) 44.1 % (23-45); MEAN CORPUSCULAR HGB 33.4 UUG (26-34); MEAN CORPUSCULAR HGB CONC(MCHC 33.3 GM/DL (31-37); MEAN CORPUSCULAR VOLUME 100.2 UM3 (80-100); MEAN PLATELET VOLUME 9.9 UM3 (9.4-12.4); MONOCYTES # (AUTO) 0.8 T/MM3 (0-0.8); MONOCYTES % (AUTO) 10.5 % (0-9.0); NEUTROPHILS #(AUTO)-ABSOLUTE 2.8 T/MM3 (1.8-7.7); RED BLOOD COUNT 4.28 M/MM3 (4.50-5.90); WBC - WHITE BLOOD COUNT 7.4 T/MM3 (4.5-11.0)
[2016-06-07 06:43] LABS: ANION GAP 10 MEQ/L (5-15); BUN/CREATININE RATIO 21 RATIO (6-26); CALCIUM 9.2 MG/DL (8.4-10.2); CHLORIDE 103 MEQ/L (98-107); CO2 - CARBON DIOXIDE 29 MEQ/L (22-30); GLOMERULAR FILTRATION RATE 75; GLUCOSE 100 MG/DL (75-110); MAGNESIUM 2.2 MG/DL (1.6-2.3); POTASSIUM 4.4 MEQ/L (3.6-5); SODIUM 142 MEQ/L (134-144)
[2016-06-07 08:00] VITALS: BP 128/89; PULSE 87; RESP 16; TEMP 97.4; O2SAT 93
[2016-06-07] MEDS: OMEPRAZOLE 20 MG CAPSULE PO SCH (08:42)
[2016-06-07] MEDS: AMOXICILLIN/CLAVULANATE 875 MG/125 MG TABLET PO SCH ×2 (08:42→17:01)
[2016-06-07] MEDS: GABAPENTIN 300 MG CAPSULE PO SCH ×3 (08:43→20:18)
[2016-06-07] MEDS: MULTIVITAMIN PLAIN TABLET PO SCH (08:43)
[2016-06-07] MEDS: POTASSIUM CHLORIDE 20 MEQ TABLET PO SCH (08:43)
[2016-06-07] MEDS: LISINOPRIL/HCTZ 20mg/12.5mg TABLET PO SCH (08:44)
[2016-06-07] MEDS: CLONIDINE 0.1 MG TABLET PO SCH ×2 (08:44→20:18)
[2016-06-07] MEDS: PAROXETINE 20 MG TABLET PO SCH (08:44)
[2016-06-07] MEDS: LOPERAMIDE 2 MG CAPSULE PO SCH ×2 (08:44→20:18)
[2016-06-07] MEDS: AMLODIPINE 5 MG TABLET PO SCH (08:44)
--- NOTE | 2016-06-07 09:00 | NUR ---
SLEEP 5.50 Hours Pt went to bed at 2345 last night and awoke at 0815. Pt slept a total of 8.0 hours as documented on the 15 minute observation forms.
--- NOTE | 2016-06-07 10:50 | PNPDOC ---
Subjective Date DATE: 06/07/16 TIME: 10:38 Poli Matson was seen after breakfast this morning. He is doing quite well, and is looking forward to going home possibly today or tomorrow. He states his nausea has resolved. He denies any abdominal pain. He has been eating and drinking well. His biggest concern today is persistent swelling to his right forearm, where he injured himself prior to hospitalization. He states it started out as an abrasion, but the swelling hasn't improved the way he expected, and he is worried about having an abscess. He asked and insisted on having this area incised and drained. Please see procedure note for details. Objective Vital Signs Vital signs Vital Signs Date Time Temp Pulse Resp B/P Pulse Ox O2 Delivery O2 Flow Rate FiO2 06/07/16 08:00 97.4 87 16 128/89 93 Room Air Height (Feet): 6 Height (Inches): 0.00 Weight (Kilograms): 99.310 General General Appearance: Alert, Orientated x 3, Well Nourished, Well Developed, No Acute Distress Eyes (Brief) Eyes: FOUND: PERRL, NOT FOUND: scleral icterus ENMT (Brief) ENMT: FOUND: mucosa moist, NOT FOUND: pharnyx erythema Respiratory (Brief) Respiratory: FOUND: clear all barreto, equal bilaterally Cardiovascular (Brief) Cardiac: FOUND: regular rate, regular rhythm Abdomen (Brief) Abdominal: FOUND: BS normo active x4, soft, NOT FOUND: distended Extremities (Brief) Extremity : Side: Bilateral Extremity: leg Extremity Finding: NOT FOUND: edema Musculoskeletal (Brief) Musculoskeletal: NOT FOUND: tenderness Integumentary (Brief) Integumentary: FOUND: dry, other (dressing was removed from right forearm, revealing healing of abrasion with approximately 2-3 cm of circumferential soft tissue swelling beneath it. No erythema and no drainage.), pink, warm Psychiatric (Brief) Psychiatric: FOUND: alert, attentive, normal affect, oriented Laboratory Laboratory Laboratory Tests 06/07/16 06:10 Laboratory Tests 06/07/16 06:10 Assessment & Plan Problems: (1) Sedative, hypnotic or anxiolytic use, unspecified with other sedative, hypnotic or anxiolytic-induced disorder Onset Date: 06/01/2016 Status: Acute Assessment & Plan: approximately 60 pills of Soma (2) Suicide attempt by substance overdose Status: Acute (3) Hypokalemia Status: Resolved (4) IBS (irritable bowel syndrome) Status: Chronic (5) Chronic back pain Status: Chronic (6) Mood disorder Status: Chronic (7) HTN (hypertension) Status: Chronic (8) Arm laceration Status: Acute Qualifiers: Laterality: right Assessment & Plan: Bedside I&D on 06/07/16 - no purulent material Plan/Intensity of Service Hypokalemia has resolved. We'll decrease potassium down to his home dose of 10 mEq daily. Blood pressure is better controlled with addition of Norvasc. Continue to monitor today to determine appropriate discharge antihypertensives. Patient has been taking lisinopril/hydrochlorothiazide at home. Clonidine was started during hospitalization as an antihypertensive and also to help with anxiety. Norvasc was subsequently started to achieve better blood pressure control. The patient would prefer to simplify his medication regimen as much as possible. Arm laceration with soft tissue swelling: No erythema or purulent drainage. Unlikely abscess, but given history of trauma and delay in healing, a bedside I& D was done. There is no purulent drainage, only mild serosanguineous drainage ( nothing to culture). Old hematoma noted under the skin. See procedure note. Complete 5-day course of Augmentin. Psychiatric progress note reviewed. Continue Paxil, Seroquel. Trazodone as needed for insomnia. He will not be sent home on a TCA or any controlled substance. Code Status Full Code Hospital Course Summary Disclaimer The hospital course summary below is not to be considered part of the above Progress Note. Hospital Course Summary 07/03/16 Agree with admission to [facility]. Hypokalemia: We'll give K-Dur 20 medical equivalents 1, and then start daily dosing. Will recheck BMP and magnesium level on 06/07/16. Hypertension: Continue with lisinopril/hydrochlorothiazide 20/25 And Clonidine 0.1 mg twice a day. He is still running 160/100. May need to increase dosing. Patient reports bradycardia in the critical care unit, currently heart rate is stable in the 90s. HR reviewed - the lowest documented HR was 53 on 06/02/16. Mostly, HR was upper 50s-70. Nausea: possible benzo withdrawal. Clonidine may be of benefit to alleviate symptoms. Ativan available PRN. Anxiety and mood disorder, recent soma overdose: Per attending. He is on Seroquel 150 mg HS. 06/05/16- Laceration appears fairly uncomplicated, but will treat with some limited abx due to palpable muscle swelling. Augmentin to cover Gm + and Anaerobes, especially given proximity to elbow joint. Will treat for 5 days- extend as indicated. Limit medications for pain. Long hx of drug abuse, Chavez OD. Pt. reports he lives at [place]- if he lives in [place] apartments, would have nurses keep control of medications if possible. He is receiving K replacement- repeat labs Tuesday AM. BP remains elevated. Will add Norvasc. He remains on Lisinopril-HCTZ. May be able to DC clonidine prior to discharge. 06/07/16 Hypokalemia has resolved. We'll decrease potassium down to his home dose of 10 mEq daily. Blood pressure is better controlled with addition of Norvasc. Continue to monitor today to determine appropriate discharge antihypertensives. Patient has been taking lisinopril/hydrochlorothiazide at home. Clonidine was started during hospitalization as an antihypertensive and also to help with anxiety. Norvasc was subsequently started to achieve better blood pressure control. The patient would prefer to simplify his medication regimen as much as possible. Arm laceration with soft tissue swelling: No erythema or purulent drainage. Unlikely abscess, but given history of trauma and delay in healing, a bedside I& D was done. There is no purulent drainage, only mild serosanguineous drainage ( nothing to culture). Old hematoma noted under the skin. See procedure note. Complete 5-day course of Augmentin. Psychiatric progress note reviewed. Continue Paxil, Seroquel. Trazodone as needed for insomnia. He will not be sent home on a TCA or any controlled substance. CHRISSY WASSERMAN FAMILY THERAPIST June 07, 2016 10:41
--- NOTE | 2016-06-07 11:00 | PDPROCED ---
Procedure Note Date 06/07/16 Procedure Name I&D right forearm Procedure Detail The site was prepped with Betadine. Local anesthesia was obtained using 2 mL's of 1% lidocaine with epinephrine. White, thick scar tissue is noted at the surface of the laceration. An 11 blade scalpel was used to make a 1 cm incision proximally radial to the initial laceration. There is a mild amount of serosanguineous drainage. There was no purulent material to culture. A hemostat was used to probe the area underneath the skin, and no pockets were identified. The swelling appeared to be old hematoma, resolving. The incision was irrigated with 100 mL of normal saline. The scar tissue was debrided. The incision was loosely closed with one Steri-Strip, and a gauze dressing was applied on top. The nurses were instructed to check the wound twice a day. We reviewed signs and symptoms of infection including redness, swelling, fever or purulent drainage, and the patient was in understanding. Recommend follow-up with Dr. Velazquez within a week of discharge. Continue the 5 day Augmentin course. CHRISSY WASSERMAN APRN June 07, 2016 10:56
--- NOTE | 2016-06-07 11:18 | NUR ---
CM CM LEFT VM FOR HARLAN PT MOTHER REGARDING D/C PLAN FOR PT. CM EXPLAINED ROLE AND PROVIDED CONTACT INFORMATION.
--- NOTE | 2016-06-07 15:26 | STEVAL ---
Eval Subjective and History Date/Time of Eval DATE: 06/07/16 TIME: 15:19 Medical Diagnosis SPEECH THERAPY EVALUATION FOR COGNITIVE EVALUATION Treatment Order: Assessment, Dev./Imp. tx plan Orientations: x 3, Cooperative Primary Complaint: SOMA OVERDOSE, BIPOLAR DX Pain: No Date of Onset of Primary Com: 06/07/2016 Clinical Test Results: RIPA COMPLETED Prior History of This Problem: No Patient's Goals: RETURN HOME, BUY A NEW TELEVISION Significant Past Medical Hx: PMH: HIATAL HERNIA, IBS, CHRONIC BACK PAIN, MOOD DX, BIPOLAR DX, HTN, SOMA ABUSE Medical History Form Reviewed: Yes Residence Type: Private home/apartment Current Functional Status: PATIENT LIVES IN [place], IS RETIRED FROM WORKING IN [employer]. 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 Education Comment CERAMIC TILE MECHANIC educated patient on reasoning for evaluation. Patient was agreeable to evaluation. Subjective and History Comment: ANTONIETA WAS EVALUATED THIS AFTERNOON IN THE [facility]. HE HAD NO ACUTE C/O PAIN OR FATIGUE- HE WAS PLEASANTLY COOPERATIVE. PATIENT REPORTS THAT HE IS ANXIOUS TO RETURN HOME. Cognition Answer yes/no questions: Yes Follow simple commands: Yes Follow complex commands: Yes Understands conversation: Yes Identifies a problem exists: Yes Identifies causes to situation: Yes % Words Intelligible: 100% % Sentence Intelligible: 100% % Conversation Intelligible: 100% Expression Comment: PATIENT EXPRESSING HIMSELF INDEPENDENTLY. VOCAL QUALITY FUNCTIONAL. WRITTEN COMMUNICATION NOT ASSESSED AT THIS TIME. Repeats series number: Yes Repeats series word: Yes Repeats sentence: Yes Oriented to place: Yes Oriented to time: Yes Oriented to daily events: Yes Oriented to remote events: Yes Recalled personal inform: Yes Recalled visitors: Yes Recalled meal: Yes Repeated attemts at pronunciat: Yes Recalled general inform: Yes Immediate Memory Score: 93 Immediate Memory Rate: WFL >90th Percent Recent Memory Score: 98 Recent Memory Rate: WFL >90th Percent Recent Time Knox Score: 91 Recent Time Knox Rate: WFL >90th Percent Remote Time Knox Score: 84 Remote Time Knox Rate: Moderate 61-90th Percent Spatial Knox Score: 93 Spatial Knox Severity Rate: WFL >90th Percent Orientation to Enviro Score: 95 Orientation to Enviro Rate: WFL >90th Percent Recall of General Info Score: 89 Recall of General Info Rate: Moderate 61-90th Percent Problem Solving/Abstract Score: 96 Problem Solving/Abstract Rate: WFL >90th Percent Organization Score: 87 Organization Severity Rating: Moderate 61-90th Percent Auditory Processing/Retention: 91 Auditory Processing/Retention: WFL >90th Percent Assessment/Plan of Care Speech Therapy Impressions: PATIENT PRESENTS WITH MODERATE IMPAIRMENTS WITH RECOLLECTION OF GENERAL INFORMATION AND ORGANIZATION, ALL OTHER SUBTESTS WERE FUNCTIONAL. PATIENT DEMONSTRATED MULTIPLE SELF-CORRECTIONS OR USES OF CIRCUMLOCUTIONS TO CUE HIMSELF FOR THE CORRECT ANSWERS. ST Treatment Plan: Evaluation Only ST Treatment Plan Frequency: N/A Treatment Plan Duration: N/A Date of Visit 06/07/16 Time Visit Began: 14:00 Time Visit Ended: 14:30 ST Assess/Plan of Care: ST Treatment Charge: Speech Eval Minutes of Individual Therapy: 30 ST FIM Comprehension Ability: 6 Modified [place] Social Interaction: 5 Supervision/Setup Problem Solvin Supervision/Setup Memory: 6 Modified [place] Expression Ability: 6 Modified [place] CAMMIE RUSH MS CCC-CERAMIC TILE MECHANIC June 07, 2016 15:22
--- NOTE | 2016-06-07 15:27 | NUR ---
Status Pt was cooperative with assessment, cares and medications. Pt has spent most of the shift in the day room conversing with staff and other patients. Pt has had no complaints of pain or discomfort. Pt takes medications as prescribed and has received no PRN medications today. Pt states that he has not had any morbid thoughts or suicidal thoughts today. Pt is currently in the day room watching television.
--- NOTE | 2016-06-07 15:34 | NUR ---
STUNNER--PHONE MESSAGE LEFT Per request of Dr. Soriano, [facility] attempted to reach pt's mother to scheduled meeting tomorrow at 1500. Message left on phone regarding meeting and mother requested to call this SW back.
[2016-06-07 16:00] VITALS: BP 128/75; PULSE 67; RESP 16; TEMP 97.8; O2SAT 96
--- NOTE | 2016-06-07 16:00 | GENPN ---
Generations Subjective Date DATE: 06/07/16 TIME: 15:51 Subjective/Severity of Illness Medications Current Medications Medications (Trade) Dose Ordered Sig/Kassandra Start Time Stop Time Status Last Admin Dose Admin Miscellaneous Medication (May use PRN orders) 1 PRN PRN 06/02/16 22:30 Haloperidol (Haldol) 0.5 mg Q6H PRN 06/02/16 22:30 06/06/16 10:47 DC Lorazepam (Ativan) 0.5 mg Q6H PRN 06/02/16 22:30 06/05/16 11:00 DC 06/04/16 20:51 0.5 MG Lorazepam (Ativan) 0.5 mg Q6H PRN 06/02/16 22:30 06/05/16 11:00 DC Haloperidol Lactate (Haldol 5 Mg/ml Inj) 0.5 mg Q6H PRN 06/02/16 22:30 06/06/16 10:47 DC Acetaminophen (Tylenol Extra Strength) 1,000 mg Q6H PRN 06/02/16 22:30 06/05/16 14:33 1,000 MG Aspirin (Ecotrin) 81 mg HS 06/03/16 21:00 06/06/16 21:19 81 MG Clonidine HCl (Catapres) 0.1 mg BID 06/03/16 09:00 06/07/16 08:44 0.1 MG Gabapentin (Neurontin) 300 mg TID 06/03/16 09:00 06/07/16 15:39 300 MG Ibuprofen (Motrin) 800 mg TID PRN 06/02/16 22:30 HCTZ/Lisinopril (Prinzide ) 1 tab DAILY 06/03/16 09:00 06/04/16 17:24 DC 06/04/16 07:43 1 TAB Omeprazole (Prilosec) 20 mg HS 06/03/16 21:00 06/06/16 17:09 DC 06/05/16 20:05 20 MG Quetiapine Fumarate (Seroquel) 150 mg HS 06/03/16 21:00 06/06/16 21:19 150 MG Loperamide HCl (Imodium) 2 mg BID 06/03/16 09:00 06/07/16 08:44 2 MG Multivitamins Therapeutic (Theragran) 1 tab DAILY 06/03/16 09:00 06/07/16 08:43 1 TAB Potassium Chloride (Kdur) 20 meq WB 06/04/16 08:00 06/07/16 10:51 DC 06/07/16 08:43 20 MEQ HCTZ/Lisinopril (Prinzide 20/ 12.5) 2 tab DAILY 06/05/16 09:00 06/07/16 08:44 2 TAB Paroxetine HCl (Paxil) 20 mg DAILY 06/06/16 09:00 06/07/16 08:44 20 MG Amoxicillin/ Clavulanate Potassium (Augmentin 875/ 125) 875 mg BIDWM 06/05/16 17:30 06/10/16 17:29 06/07/16 08:42 875 MG Amlodipine Besylate (Norvasc) 5 mg DAILY 06/05/16 15:15 06/07/16 08:44 5 MG Trazodone HCl (Desyrel) 50 mg HS PRN 06/06/16 15:45 Omeprazole (Prilosec) 20 mg ACB 06/07/16 06:30 06/07/16 08:42 20 MG Potassium Chloride (Kdur) 10 meq WB 06/08/16 08:00 Subjective CC: " I did not have restful sleep" Patient seen, chart reviewed and vitals noted to be stable. He presented post overdose on about 66 of over a period of about 1-3 days. It is difficult to ascertain over how long given that he provides different accounts of the same incident at various time. Patient admits to having short term memory impairment. He denies that this was a suicide attempt and identifies his protective factor to be his belief in God. He admits to long history of depression, but feels that he is doing better but would like to have a more restful sleep. He is on Trazodone, Seroquel and Paxil. He denies SI/HI and no AH/VH. Per staff, patient has been cooperative with no significant behavioral difficulties on the unit. No psychotropic PRNs required in the past 24 hours. Appetite good. VSS. Time of Service: 11:15 Start Time: 11:15 Stop Time: 11:30 Care >50% of this visit spent in counseling/coordination care. [facility] Exam Vitals Vital Signs Date Time Temp Pulse Resp B/P Pulse Ox O2 Delivery O2 Flow Rate FiO2 06/07/16 08:00 97.4 87 16 128/89 93 Room Air Physical examination performed by the hospitalist. Height (Feet): 6 Height (Inches): 0.00 Mental Status Exam Muscle Strength/Tone: Normal Dressing: Casual Grooming: Good Attitude: Cooperative Motor Activity: Normal Eye Contact: Good Speech: Normal Volume: Normal Rhythm: Appropriate Rhythm Sensory: Alert Orientation: Oriented to person, Oriented to place, Oriented to time Mood: Neutral Affect: Stable Rate of Thoughts: Appropriate Rate Thought Organization: Organized Associations: Intact Abstract Reasoning: Intact, able to abstract Computation: Approp. for Edu. Level Perception/Psychotic: Perception Normal Attention Span/Concentration: Normal Fund of Knowledge: Jennifer aware current events Memory: Poor-immediate, Poor-recent Suicidal Ideation: None Homicidal Ideation: None Insight: Fair Judgment: Fair Impulse Control: Poor Laboratory Tests Test 06/07/16 06:10 White Blood Count 7.4T/MM3 Red Blood Count 4.28M/MM3 Hemoglobin 14.3GM/DL Hematocrit 42.9% Mean Corpuscular Volume 100.2UM3 Mean Corpuscular Hemoglobin 33.4UUG Mean Corpuscular Hemoglobin Concent 33.3GM/DL RDW Standard Deviation 44.4FL Platelet Count 185T/MM3 Mean Platelet Volume 9.9UM3 Immature Granulocyte % (Auto) 0.1% Neutrophils (%) (Auto) 38.0% Lymphocytes (%) (Auto) 44.1% Monocytes (%) (Auto) 10.5% Eosinophils (%) (Auto) 6.6% Basophils (%) (Auto) 0.7% Absolute Immature Granulocyte (auto 0.01T/MM3 Absolute Neutrophils (auto) 2.8T/MM3 Absolute Lymphocytes (auto) 3.3T/MM3 Absolute Monocytes (auto) 0.8T/MM3 Absolute Eosinophils (auto) 0.5T/MM3 Absolute Basophils (auto) 0.1T/MM3 Turbidity < 20 Sodium Level 142MEQ/L Potassium Level 4.4MEQ/L Chloride Level 103MEQ/L Carbon Dioxide Level 29MEQ/L Anion Gap 10MEQ/L Blood Urea Nitrogen 21.0MG/DL Creatinine 1.0MG/DL Glomerular Filtration Rate Calc 75 BUN/Creatinine Ratio 21RATIO Glucose Level 100MG/DL Calculated Osmolality 276MOSM/KG Calcium Level 9.2MG/DL Magnesium Level 2.2MG/DL Icterus Index < 2 Chemistry Specimen Hemolysis < 15 Assessment and Plan (1) Suicide attempt by substance overdose (2) Mood disorder Assessment: 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 Patient is not to have further controlled substances. Will review records prior to making further med changes. Evaluate and stabilize, maintain safety precautions and monitor patient's mood/ behavior on the unit. Will discuss safe discharge plan with patient and mother. 06/05/16: Restart Paxil 20mg PO in AM though may increase dose quickly if well- tolerated. Continue Seroquel 150mg PO q HS. Will discuss with o/p providers recommendation for no controlled substances. 06/06/16: Continue Paxil 20mg PO daily. Will start trazodone 50-100mg PO q HS PRN insomnia. Discontinued PRN Haldol per patient request and as he has not been agitated requiring PRNs since admission. I have stated to patient that I will not prescribe him a TCA or any controlled substances upon discharge. Plan to finalize discharge arrangements with mother, outpatient provider, increase support with [facility]. 06/07/16: Family meeting with mother on 06/08/16 at 1500. Talia/Jose David today and Neuropsych consult. (3) Sedative, hypnotic or anxiolytic use, unspecified with other sedative, hypnotic or anxiolytic-induced disorder (4) Hypokalemia (5) IBS (irritable bowel syndrome) (6) Chronic back pain (7) HTN (hypertension) MOLLY OLVERA MD June 07, 2016 15:57
--- NOTE | 2016-06-07 16:10 | NUR ---
HOUSE REGISTRY RN--FAMILY CONTACT [facility] met with pt's mother, Krystal Flores. She happened to be at the hospital with her other son for some imaging. This SW explained about Dr. Soriano's request for family meeting tomorrow at 3:00. The mother will plan on being here. This SW advised mother that the patient was agreeable to signing DPOA-HC paperwork that lists her as his primary agent and his sister as secondary. This SW clarified that the pt. did not joshua permission to sign for psychiatric purposes. The mother is agreeable to act as his DPOA-hc. She said pt's Medicaid CM was recommending that she seek guardianship for him, which she is not in agreement.
--- NOTE | 2016-06-07 16:13 | NUR ---
CHAIN HOIST OPERATOR--[facility] with patient to have DPOA-HC document notarized. Pt. lists his mother, Krystal Flores, as his primary agent and his sister, Yu Contreras, as his secondary agent. He crossed out and does NOT give permission for his agents to sign for psychiatric treatment.
[2016-06-07] MEDS ORDERED: NICOTINE 2 MG GUM BUC PRN (16:15)
--- NOTE | 2016-06-07 16:15 | NUR ---
RETAIL MERCHANDISING MANAGER--[facility] talked with pt. about his interest in pursuing activities that might keep him engaged in social activities. This SW explained to him that [facility] would allow him to audit any class for $30 if he was 62 or older. Pt. said he would really like to attend either a physics or computer class to bone up his skills.
--- NOTE | 2016-06-07 16:17 | NUR ---
PRN/SMOKING CESSATION Pt accepted and chewed nicotine gum.
[2016-06-07] MEDS: ACETAMINOPHEN 500 MG TABLET PO PRN ×2 (17:01→23:39)
--- NOTE | 2016-06-07 18:23 | NUR ---
SUMMARY Pt was cooperative the remainder of the shift. No reports of morbid thoughts and pt denies suicidal ideation. Pt has had no complaints of pain or discomfort. Pt ate 100% of all meals and is currently in the day room watching television.
[2016-06-07 19:45] VITALS: BP 129/83; PULSE 68; RESP 20; TEMP 97.6; O2SAT 96
[2016-06-07] MEDS: ASPIRIN *EC* 81mg TABLET PO SCH (20:18)
[2016-06-07] MEDS: QUETIAPINE 100 MG TABLET PO SCH (20:18)
--- NOTE | 2016-06-07 22:10 | NUR ---
SUMMARY PATIENT WAS PLEASANT AND COOPERATIVE WITH STAFF. HE IS EXCITED THAT HE WILL BE GOING HOME TOMORROW AND IS LOOKING FORWARD TO RETURNING TO HIS NORMAL ROUTINE. PATIENT HAS BEEN IN THE GROUP ROOM MOST OF THE EVENING. HE TOOK ALL HIS MEDICATIONS WHOLE. HE DENIES ANY HALLUCINATIONS OR SUICIDAL IDEATION. HE HAS NOT HAD ANY AGGRESSIVE BEHAVIORS. NO PRN'S GIVEN OF NOW.
[2016-06-08 00:56] VITALS: PULSE 68
[2016-06-08 00:56] LABS: VLDL CHOLESTEROL 37.4 MG/DL (0-28)
--- NOTE | 2016-06-08 06:48 | NUR ---
Chart Check 24 hour chart check completed
--- NOTE | 2016-06-08 07:33 | NUR ---
Bedtime Pt. is in bed at 2345. Pt is asleep at 0015. No sleep time during day shift.
--- NOTE | 2016-06-08 07:37 | NUR ---
Summary Pt. is eating a snack in the dayroom on approach. Pt. is pleasant and cooperative. Pt. watches tv in the group room sitting in a wheelchair. Pt. ambulates independently. No evidence of depression or anxiety. Pt. laughs and jokes with staff. Pt. is offered trazadone to help pt. sleep. Pt. asks how many mg. Pt. is told how many mg and he declines the medication. Pt. does complain of back pain and rates pain 09/16. Tylenol 1000 mg PO given at 2339. Pt. is asleep at reassessment. Pt. right forearm bandage is C/D/I. No morbid thoughts expressed and pt. denies SI. Pt. is up ad tre.
[2016-06-08 08:00] VITALS: BP_SYST 128; BP_SYST 137; BP_DIAS 70; BP_DIAS 85; PULSE 107; PULSE 88; RESP 16; TEMP 97.4; TEMP 97.8; O2SAT 93; O2SAT 95
[2016-06-08] MEDS ORDERED: POTASSIUM CHLORIDE 10 MEQ TABLET PO SCH (08:00)
[2016-06-08] MEDS: OMEPRAZOLE 20 MG CAPSULE PO SCH (09:00)
--- NOTE | 2016-06-08 09:00 | NUR ---
SLEEP 7.25 Hours Pt went to bed at 2345 last night and awoke at 0745. Pt slept a total of 7.25 hours as documented on the 15 minute observation forms.
[2016-06-08] MEDS: AMOXICILLIN/CLAVULANATE 875 MG/125 MG TABLET PO SCH ×2 (09:01→16:46)
[2016-06-08] MEDS: CLONIDINE 0.1 MG TABLET PO SCH (09:01)
[2016-06-08] MEDS: GABAPENTIN 300 MG CAPSULE PO SCH ×2 (09:03→15:15)
[2016-06-08] MEDS: LOPERAMIDE 2 MG CAPSULE PO SCH (09:03)
[2016-06-08] MEDS: PAROXETINE 20 MG TABLET PO SCH (09:03)
[2016-06-08] MEDS: LISINOPRIL/HCTZ 20mg/12.5mg TABLET PO SCH (09:04)
[2016-06-08] MEDS: MULTIVITAMIN PLAIN TABLET PO SCH (09:04)
[2016-06-08] MEDS: AMLODIPINE 5 MG TABLET PO SCH (09:12)
[2016-06-08 10:47] LABS: LDL CHOLESTEROL,CALCULATED 93.6 (66-159)
--- NOTE | 2016-06-08 11:10 | NUR ---
OTORHINOLARYNGOLOGIST--DISCHARGE RECOMMENDATIONS [facility] spoke with Dr. Soriano by phone. He confirmed family meeting today at 1500. He asked about .u. mental health services. Explained that pt. wanted to continue seeing Catherine Patel at [facility] for substance abuse counseling but his medication management would be done at [facility] in [place]. Dr. Soriano was advised that [facility] would not accept pt. because of his insurance. Dr. Soriano asked this SW to see if pt. would agree to see psychiatrist at [facility]. This SW spoke with pt. about Dr. Soriano's recommendation. Pt. states he is unwilling to have the psychiatrist at [facility] manage his medications. He wants to continue his mental health services with Shelley Shoemaker APRN with [facility]. This SW will ask manager critical care unit to see if pt. can keep seeing Shelley. Talked with pt. about possibility of attending AA meetings. Pt. stated he thought about it last night and he is agreeable to trying a meeting in [place]. He thinks he can get an AA member to provide transportation. He is also agreeable to having his mother manage his medications by only providing a few days at a time. Pt. states he feels much improved and hopes to be able to stay on this same medication once he leaves.
--- NOTE | 2016-06-08 14:50 | NUR ---
Status Pt was cooperative with assessment, cares and medications. Pt has spent most of the shift in the day room conversing with staff and other patients. Pt has had no complaints of pain or discomfort so far this shift. Pt takes medications as prescribed. Pt states that he has not had any morbid thoughts or suicidal thoughts today. Pt is currently in the day room watching television with staff present
[2016-06-08] MEDS: ACETAMINOPHEN 500 MG TABLET PO PRN (15:15)
[2016-06-08] MEDS ORDERED: TRAZ-170 PO (16:07)
[2016-06-08] MEDS ORDERED: PARO-38 PO (16:07)
--- NOTE | 2016-06-08 16:33 | NUR ---
FIRE RANGE TECHNICIAN--FAMILY MEETING DR. Soriano and [facility] met with pt. and his mother, Krystal Flores. Dr. Sroiano got pt's permission to speak privately with both he and his mother before meeting together. Pt. feels he is ready to discharge home. He denies having S.I. He feels optimistic about the future and eager to engage in services to help keep himself heading in the right direction. He was disturbed to hear that his mother's had "forbidden" her from working as the pt's home health aid. He admitted he did not really want his mother hanging out at his house for 4 hours a day twice a week. He preferred to have someone other than his mother as his home service director. He was agreeable to having his mother manage his medications by only giving him 3-4 days at a time in his pill program planner. Dr. Soriano encouraged pt. to focus on expanding his social support system as a means to help manage his depression. Pt. is scheduled to see Catherine Patel at [facility] on outpatient basis for substance abuse counseling. He is going to continue following up with Stu Shoemaker APRN at [facility] for medication management. He will have f.u. appt. with Dr. Tavo Velazquez. Pt. is considering option of attending AA meetings and he wants to try and audit a class at [place]. Pt.'s mother was seen privately. She is willing to allow someone else to be hired as his home health aide so that she can simply take on role as his mother. She is agreeable to managing his medications. Pt. was able to use phone to arrange medicaid transportation to his appts. with [facility] and Obie Shoemaker. Pt. was also given information to consider on MOW.
[2016-06-08] MEDS ORDERED: AMOX1TAB16 PO (16:35)
[2016-06-08] MEDS ORDERED: AMLO5TAB2 PO (16:35)
[2016-06-08 16:50] VITALS: BP 149/83; PULSE 80; RESP 16; TEMP 98.2; O2SAT 96
--- NOTE | 2016-06-08 17:07 | NUR ---
Unit contact information given to patient upon dismissal along with plans for follow-up care with PCP and MH professional as outlined in [facility]. No pending labs on discharge
--- NOTE | 2016-06-08 17:07 | NUR ---
DISMISSAL Pt exited the generations unit at 1705 this evening. Pt was escorted in a wheel chair to the front door of the medical center by [facility] staff. Pt left the unit in stable condition and with all personal property with him. Patient was to be transported home by his mother in her personal vehicle.
--- NOTE | 2016-06-10 11:32 | DSPDOC ---
General Date Date DATE: 06/10/16 TIME: 11:29 Attending Physician Shelley Saunders MD Admitting Physician Shelley Saunders MD Consulting Physician Margo Hussein MD Admitting Diagnosis bipolar disorder Discharge Diagnosis 1. Major Depressive disorder severe 2. Alcohol use disorder severe 3. Cylobenzaprine use disorder 4. Chronic back pain 5. Cognitive Impairment History of Present Illness HPI by Dr. Saunders: Patient is a 66-year-old male previously seen on the consult service s /p intentional overdose by Soma. Patient reportedly made comments to his mother about it being a suicide attempt and then later denied it. It is estimated he took over 64 pills in 24 hours. Patient's mother strongly felt that patient is a danger to self. Patient was then transferred to [facility] voluntarily for inpatient psych stabilization. Past medical records list bipolar disorder though patient denies past symptoms consistent with cedrick. He feels his anxiety is his primary issue but does not appear anxious during interview. He asks about multiple controlled substances - Xanax, Ativan - and says this is why he overused Soma. Patient has had multiple past psych hospitalizations including [facility] and [facility] though he was not straightforward about this during initial interview. He states he has to take Seroquel for sleep but is on quite a large dose. Will request records from as well as o/p provider Shelley Shoemaker with [facility]. Depression: sad, hopeless, decreased energy, change in appetite, social withdrawl, sleep disturbance, morbid thinking Anxiety: worries Hospital Course The patient was transferred to the [facility] unit on 06/02/16, after medical stabilization post overdose on Soma. After the initial evaluation, the patient was placed on (suicide, homicide) precautions. He admitted to overdosing on Soma over a span of few days and reports that he was taking the medication due to his back pain. His mother gave a different account and suspected that patient s overdose was a suicide attempt, which patient vehemently denied. He identified his protective factor to be his jew. Based on the diagnostic interview and collateral information provided by his mother, the patient was diagnosed with MDD recurrent severe. The patient did report some symptoms in the past consistent with the diagnosis. He was re-started on Paxil and Seroquel and titrated to response. Prior to the patient's agreement of medication trials, the side effects, risk and benefits of all medications were discussed with the patient. The patient tolerated medications well and without any side effects. There was a Talia and Rippa evaluation done which identified that patient required assistance at home. The medical team follow him through out the hospital stay. A family meeting was held with the treatment team. During the meeting patients diagnosis, treatment, risks and benefits of treatment and medications and safety concerns were discussed. The treatment team and family members voiced understanding of the plan during the hospital stay and on discharge. His mother agreed to take care of his medications and will only provide him with 3 days worth of medication at a time. During the hospitalization, the patient participated in unit activities, did not have self-harming behavior or aggressive outbursts, and the patient's vital signs remained within normal limits and stable. Throughout the hospitalization, the patient reported improvement of symptoms and resolution of suicidal thoughts. The patient symptoms continued to improve with treatment. The treatment plan was in place. The family was contacted prior to dismissal, remained supportive of the patient and understood the plan. At this time, the patient was stable and ready for discharge with follow-up scheduled. Outpatient follow up was scheduled for both medication and therapy. Problems: Code Status Full Code Home Meds Active Scripts Amlodipine Besylate (Amlodipine Besylate) 5 Mg Tablet, 5 MG PO DAILY for 30 Days , #30 TAB Prov:KOURTNEY LAWRENCE APRN 06/08/16 Amox Tr/Potassium Clavulanate (Amox Tr-K Clv 875-125 mg Tab) 875 Mg Tablet, 875 MG PO BIDWM for 5 Days, #10 TAB Prov:KOURTNEY LAWRENCE APRN 06/08/16 Trazodone HCl (Trazodone HCl) 50 Mg Tablet, 50 MG PO HS Y for INSOMNIA for 28 Days, #28 TAB 0 Refills Prov:MOLLY OLVERA MD 06/08/16 Paroxetine HCl (Paroxetine HCl) 20 Mg Tablet, 20 MG PO DAILY for DEPRESSION for 28 Days, #28 TAB 0 Refills Prov:MOLLY OLVERA MD 06/08/16 Quetiapine Fumarate (Quetiapine Fumarate) 100 Mg Tablet, 150 MG PO HS for 7 Days , #11 TAB Prov:MARGO HUSSEIN MD 06/02/16 Ibuprofen (Ibuprofen) 800 Mg Tablet, 800 MG PO TID Y for HEADACHE for 14 Days, # 42 TAB Prov:MARGO HUSSEIN MD 06/02/16 Acetaminophen (Tylenol Extra Strength) 500 Mg Tablet, 1000 MG PO Q6H Y for PAIN for 14 Days, #112 TAB Prov:MARGO HUSSEIN MD 06/02/16 Clonidine HCl (Clonidine HCl) 0.1 Mg Tablet, 0.1 MG PO BID, #60 Prov:MARGO HUSSEIN MD 06/02/16 Reported Medications Omeprazole (Omeprazole) 20 Mg Capsule.dr, 20 MG PO HS 06/01/16 Gabapentin (Gabapentin) 300 Mg Capsule, 300 MG PO TID 06/01/16 Lisinopril/Hydrochlorothiazide (Lisinopril-Hctz 20-25 mg Tab) 1 Each Tablet, 1 TAB PO DAILY 06/01/16 Aspirin *EC* (Aspirin EC) 81 Mg Tablet.dr, 81 MG PO HS 04/15/16 Loperamide HCl (Anti-Diarrheal) 2 Mg Tablet, 2 MG PO BID 04/15/16 Multivitamins (Multivitamin) 1 Tab Tablet, 1 TAB PO DAILY, TAB 03/09/13 Face to Face Encounter I met with patient on the day of dismissal and discussed follow up appointments , medications, and safety plan. Discharge Disposition Home with his mother MOLLY OLVERA MD June 10, 2016 11:32 MOLLY OLVERA MD June 10, 2016 11:32
--- NOTE | 2016-06-15 14:37 | NUR ---
CM CM UNABLE TO LVM VM FULL
== END 2016-06-08 17:23 | disposition home or self-care (01) | DRG 885 ==
LOC: GEN 21:20
PROVIDERS: ADMIT Psychiatry & Neurology Psychiatry; ATTEND Psychiatry & Neurology Psychiatry
PROC: 0H9DXZZ Drainage of Right Lower Arm Skin, External Approach (ICD-10-PCS; principal; 2016-06-07)
DX: F33.2 Major depressive disorder, recurrent severe without psychotic features (principal); R11.0 Nausea; F10.10 Alcohol abuse, uncomplicated; I10 Essential (primary) hypertension; F17.200 Nicotine dependence, unspecified, uncomplicated; G89.29 Other chronic pain; M54.9 Dorsalgia, unspecified; K44.9 Diaphragmatic hernia without obstruction or gangrene; K58.9 Irritable bowel syndrome, unspecified; S51.811A Laceration without foreign body of right forearm, initial encounter; Z79.82 Long term (current) use of aspirin; W45.8XXA Other foreign body or object entering through skin, initial encounter; W22.09XA Striking against other stationary object, initial encounter; Y92.009 Unspecified place in unspecified non-institutional (private) residence as the place of occurrence of the external cause; Y99.8 Other external cause status
CPT/HCPCS: 36415; 80048; 80061; 83735; 85025; 99406